=== PATIENT | male | born 1975 | race African-American/Black ===

== ENCOUNTER 2017-02-11 08:52 | Emergency (ER) | payer OTHER ==
[2017-02-11] MEDS ORDERED: SODIUM CHLORIDE 0.9% 1,000 ML IV STA (09:05)
[2017-02-11] MEDS ORDERED: ONDANSETRON 4 MG/2 ML VIAL IVP STA (09:05)
[2017-02-11] MEDS ORDERED: KETOROLAC 30 MG/ML 1 ML VIAL IVP STA (09:05)
[2017-02-11] MEDS ORDERED: MORPHINE SULFATE 2 MG/ML SYRINGE IVP ONE (09:13)
[2017-02-11] MEDS ORDERED: diphenhydrAMINE 50 MG/ML 1 ML VIAL IVP STA (09:13)
[2017-02-11 09:31] LABS: Appearance,Urine Clear (Clear); Bilirubin,Urine Negative (Negative); Glucose,Urine (UA) Negative (Negative); Ketones,Urine Negative (Negative); Leukocyte Esterase,Urine Negative (Negative); Nitrite,Urine Negative (Negative); PH, Urine 5.5 (5.0-8.0); Protein,Urine Negative (Negative); Specific Gravity,Urine 1.015 (1.001-1.035); UA Billing (MACRO vs. MICRO) CHEM; Urobilinogen,Urine <2.0 mg/dL (<2.0)
[2017-02-11 09:43] LABS: ALT 382 U/L (21-72); AST 257 U/L (17-59); Alkaline Phosphatase 111 U/L (38-126); Amylase 103 U/L (30-110); Anion Gap 8 mmol/L; Blood Urea Nitrogen 11 mg/dL (9-20); Carbon Dioxide 26 mmol/L (22-30); Chloride 106 mmol/L (98-107); Glucose 94 mg/dL (74-99); Non-African American GFR(MDRD) >60 (>60 ml/min/1.73 sqM); Potassium 4.2 mmol/L (3.5-5.1); Sodium 140 mmol/L (137-145); Total Bilirubin 0.3 mg/dL (0.2-1.3); Total Protein 6.6 g/dL (6.3-8.2)
[2017-02-11 09:48] LABS: Basophils % (A) 1 %; CH 24.5; Eosinophils # (A) 0.1 k/uL (0-0.7); Eosinophils % (A) 1 %; HCT 39.7 % (39.0-53.0); HDW 2.54; HGB 12.4 gm/dL (13.0-17.5); Luc # (Auto) 0.16; Luc % (Auto) 4; Lymphocytes # (A) 1.2 k/uL (1.0-4.8); Lymphocytes % (A) 33 %; MCH 24.1 pg (25.0-35.0); MCHC 31.3 g/dL (31.0-37.0); MCV 77.2 fL (80.0-100.0); Mean Platelet Volume 7.1; Monocytes # (A) 0.4 k/uL (0-1.0); Monocytes % (A) 10 %; Neutrophils # (A) 1.9 k/uL (1.3-7.7); Neutrophils % (A) 51 %; RBC 5.15 m/uL (4.30-5.90); RDW 15.7 % (11.5-15.5); WBC 3.8 k/uL (3.8-10.6); WBC (Perox) 3.99
[2017-02-11 09:51] LABS: INR 0.9 (<1.2); Partial Thromboplastin Time 23.1 sec (22.0-30.0); Prothrombin Time 9.6 sec (9.0-12.0)
--- NOTE | 2017-02-11 09:52 | XR ---
EXAMINATION TYPE: XR KUB DATE OF EXAM: 02/11/2017 COMPARISON: NONE HISTORY: Left-sided pain TECHNIQUE: One view abdominal series FINDINGS: The osseous structures are intact. The bowel gas pattern is nonspecific. Linear change left lung bas e. Hypertrophic change of the acetabulum noted. No suspicious calcifications. IMPRESSION: 1. Nonspecific abdomen. No obstruction. 2. Linear change left lung base most typical of atelectasis.
--- NOTE | 2017-02-11 10:06 | ED ---
General Adult HPI - General Chief complaint: Urogenital Stated complaint: back pain,cannot urinate Time Seen by Provider: 02/11/17 09:04 Source: patient, RN notes reviewed, old records reviewed Mode of arrival: ambulatory Limitations: no limitations - History of Present Illness Initial comments: 41-year-old male presents to the emergency department chief complaint of 3 days of left-sided flank pain. Patient reports it feels similar to when he had a kidney stone in the past. He states it feels like there is contractions and the pain seems to come and go in certain spots. Patient states the pain is in the back. Denies any specific pain radiating towards the abdomen. Patient states he's had no abnormal bowel movements. Feels nauseated but denies any specific vomiting. Patient states that he was taking Motrin with some relief of the pain. Patient states he does have a history of alcohol abuse. He did stop drinking 2 weeks ago. Patient denies any history of sick contacts.he reports that he has been urinating a dark color despite drinking lots of water. - Related Data Home Medications Medication Instructions Recorded Confirmed Venlafaxine HCl [Effexor] 75 mg PO HS 08/29/14 02/11/17 Ibuprofen [Motrin] 200 - 400 mg PO Q6HR PRN 02/11/17 02/11/17 Previous Rx's Medication Instructions Recorded HYDROcodone/APAP 5-325MG [[place] 1 tab PO Q6HR PRN #15 tab 02/11/17 5-325] Ketorolac [Toradol] 10 mg PO Q6HR #15 tab 02/11/17 Ondansetron Odt [Zofran Odt] 4 mg PO Q12HR PRN #12 tab 02/11/17 Tamsulosin [Flomax] 0.4 mg PO DAILY #7 cap 02/11/17 Allergies Allergy/AdvReac Type Severity Reaction Status Date / Time hydromorphone HCl Allergy Rash/Hives Verified 02/11/17 10:01 [From Dilaudid] shellfish derived [Shellfish] Allergy Anaphylaxis Verified 02/11/17 10:01 Review of Systems ROS Statement: Those systems with pertinent positive or pertinent negative responses have been documented in the HPI. ROS Other: All systems not noted in ROS Statement are negative. Past Medical History Past Medical History: Hypertension Additional Past Medical History / Comment(s): arthritis, kidney stone 2004 History of Any Multi-Drug Resistant Organisms: None Reported Past Surgical History: Orthopedic Surgery Additional Past Surgical History / Comment(s): lymph node removal, rotator cuff repair, biopsy right thigh Past Psychological History: Depression Smoking Status: Current some day smoker Past Alcohol Use History: None Reported Past Drug Use History: None Reported General Exam - General Exam Comments Initial Comments: this is a 41-year-old male. Patient does appear to be in some discomfort. Limitations: no limitations General appearance: alert, in no apparent distress Head exam: Present: atraumatic, normocephalic, normal inspection Eye exam: Present: normal appearance, PERRL, EOMI. Absent: scleral icterus, conjunctival injection, periorbital swelling ENT exam: Present: normal exam, mucous membranes moist Neck exam: Present: normal inspection. Absent: tenderness, meningismus, lymphadenopathy Respiratory exam: Present: normal lung sounds bilaterally. Absent: respiratory distress, wheezes, rales, rhonchi, stridor Cardiovascular Exam: Present: regular rate, normal rhythm, normal heart sounds. Absent: systolic murmur, diastolic murmur, rubs, gallop, clicks GI/Abdominal exam: Present: soft, tenderness (patient has some mild tenderness in the epigastric region and right upper quadrant.), normal bowel sounds. Absent: distended, guarding, rebound, rigid Extremities exam: Present: normal inspection, full ROM, normal capillary refill. Absent: tenderness, pedal edema, joint swelling, calf tenderness Back exam: Present: normal inspection, full ROM, CVA tenderness (L) Neurological exam: Present: alert, oriented X3, CN II-XII intact Psychiatric exam: Present: normal affect, normal mood Skin exam: Present: warm, dry, intact, normal color. Absent: rash Course Vital Signs 02/11/17 02/11/17 02/11/17 08:59 10:08 11:37 Temperature 98.9 F 97.0 F L Pulse Rate 89 71 65 Respiratory 18 18 14 Rate Blood Pressure 169/94 134/86 136/86 O2 Sat by Pulse 99 100 97 Oximetry Medical Decision Making - Medical Decision Making this is a 32-year-old male chief complaint of left flank pain, and difficulty urinating. Patient reports he thinks he has a kidney stone. Patient was given IV fluids, Toradol and 200s of morphine. Patient was reevaluated and reports that this pain is somewhat subsiding. Patient's urine shows no evidence of blood. Patient did have some elevated liver enzymes. Patient does relate that he has history of alcohol use but did stop drinking 2 weeks ago. Lipase is also mildly elevated. Patient will receive a gallbladder ultrasound. KUB was reviewed and negative for any acute process. RUQ us shows hepatomegaly, no cholelithiasis. Patient informed of results. Discused will treat patient with pain medication, and dose flomax as if patient does have renal stone. Discussed that he may have already passed it. Patient adivsed to follow up with PCP, return parameters discussed. - Lab Data Result diagrams: 02/11/17 09:15 02/11/17 09:15 Lab Results 02/11/17 02/11/17 02/11/17 Range/Units 09:15 09:15 09:15 WBC 3.8 (3.8-10.6) k/uL RBC 5.15 (4.30-5.90) m/uL Hgb 12.4 L (13.0-17.5) gm/dL Hct 39.7 (39.0-53.0) % MCV 77.2 L (80.0-100.0) fL MCH 24.1 L (25.0-35.0) pg MCHC 31.3 (31.0-37.0) g/dL RDW 15.7 H (11.5-15.5) % Plt Count 185 (150-450) k/uL Neutrophils % 51 % Lymphocytes % 33 % Monocytes % 10 % Eosinophils % 1 % Basophils % 1 % Neutrophils # 1.9 (1.3-7.7) k/uL Lymphocytes # 1.2 (1.0-4.8) k/uL Monocytes # 0.4 (0-1.0) k/uL Eosinophils # 0.1 (0-0.7) k/uL Basophils # 0.0 (0-0.2) k/uL PT (9.0-12.0) sec INR (<1.2) APTT (22.0-30.0) sec Sodium 140 (137-145) mmol/L Potassium 4.2 (3.5-5.1) mmol/L Chloride 106 (98-107) mmol/L Carbon Dioxide 26 (22-30) mmol/L Anion Gap 8 mmol/L BUN 11 (9-20) mg/dL Creatinine 1.04 (0.66-1.25) mg/dL Est GFR (MDRD) Af Amer >60 (>60 ml/min/1.73 sqM) Est GFR (MDRD) Non-Af >60 (>60 ml/min/1.73 sqM) Glucose 94 (74-99) mg/dL Calcium 9.0 (8.4-10.2) mg/dL Total Bilirubin 0.3 (0.2-1.3) mg/dL AST 257 H (17-59) U/L ALT 382 H (21-72) U/L Alkaline Phosphatase 111 (38-126) U/L Total Protein 6.6 (6.3-8.2) g/dL Albumin 3.9 (3.5-5.0) g/dL Amylase 103 (30-110) U/L Lipase 330 H (23-300) U/L Urine Color Yellow Urine Appearance Clear (Clear) Urine pH 5.5 (5.0-8.0) Ur Specific [place] 1.015 (1.001-1.035) Urine Protein Negative (Negative) Urine Glucose (UA) Negative (Negative) Urine Ketones Negative (Negative) Urine Blood Negative (Negative) Urine Nitrite Negative (Negative) Urine Bilirubin Negative (Negative) Urine Urobilinogen <2.0 (<2.0) mg/dL Ur Leukocyte Esterase Negative (Negative) 02/11/17 Range/Units 09:15 WBC (3.8-10.6) k/uL RBC (4.30-5.90) m/uL Hgb (13.0-17.5) gm/dL Hct (39.0-53.0) % MCV (80.0-100.0) fL MCH (25.0-35.0) pg MCHC (31.0-37.0) g/dL RDW (11.5-15.5) % Plt Count (150-450) k/uL Neutrophils % % Lymphocytes % % Monocytes % % Eosinophils % % Basophils % % Neutrophils # (1.3-7.7) k/uL Lymphocytes # (1.0-4.8) k/uL Monocytes # (0-1.0) k/uL Eosinophils # (0-0.7) k/uL Basophils # (0-0.2) k/uL PT 9.6 (9.0-12.0) sec INR 0.9 (<1.2) APTT 23.1 (22.0-30.0) sec Sodium (137-145) mmol/L Potassium (3.5-5.1) mmol/L Chloride (98-107) mmol/L Carbon Dioxide (22-30) mmol/L Anion Gap mmol/L BUN (9-20) mg/dL Creatinine (0.66-1.25) mg/dL Est GFR (MDRD) Af Amer (>60 ml/min/1.73 sqM) Est GFR (MDRD) Non-Af (>60 ml/min/1.73 sqM) Glucose (74-99) mg/dL Calcium (8.4-10.2) mg/dL Total Bilirubin (0.2-1.3) mg/dL AST (17-59) U/L ALT (21-72) U/L Alkaline Phosphatase (38-126) U/L Total Protein (6.3-8.2) g/dL Albumin (3.5-5.0) g/dL Amylase (30-110) U/L Lipase (23-300) U/L Urine Color Urine Appearance (Clear) Urine pH (5.0-8.0) Ur Specific [place] (1.001-1.035) Urine Protein (Negative) Urine Glucose (UA) (Negative) Urine Ketones (Negative) Urine Blood (Negative) Urine Nitrite (Negative) Urine Bilirubin (Negative) Urine Urobilinogen (<2.0) mg/dL Ur Leukocyte Esterase (Negative) - Radiology Data Radiology results: report reviewed ultrasound of the gallbladder showsMild hepatomegaly. No gallstones. KUB negative for any acute process. Disposition Clinical Impression: Left flank pain, Elevated liver enzymes Disposition: HOME SELF-CARE Condition: Good Instructions: Flank Pain (ED) Additional Instructions: patient advised to take the medication as prescribed. Follow-up with primary care provider. Return to the emergency department if any alarming signs or symptoms occur. Recommended repeating her lab work and one month if he discontinue drinking today monitor her liver enzymes. Prescriptions: HYDROcodone/APAP 5-325MG [[place] 5-325] 1 tab PO Q6HR PRN #15 tab PRN Reason: Pain Ketorolac [Toradol] 10 mg PO Q6HR #15 tab Ondansetron Odt [Zofran Odt] 4 mg PO Q12HR PRN #12 tab PRN Reason: Nausea Tamsulosin [Flomax] 0.4 mg PO DAILY #7 cap Referrals: None,Stated [Primary Care Provider] - 1-2 days Time of Disposition: 11:26
--- NOTE | 2017-02-11 10:39 | US ---
EXAMINATION TYPE: US gallbladder DATE OF EXAM: 02/11/2017 COMPARISON: NONE CLINICAL HISTORY: Pain. Back spasms EXAM MEASUREMENTS: Liver Length: 18.3 cm Gallbladder Wall: 0.2 cm CBD: 0.3 cm Right Kidney: 10.6 x 5.2 x 5.5 cm Pancreas: Limited by bowel gas Liver: enlarged Gallbladder: no evidence of stones Evidence for sonographic Rodrigez's sign: No CBD: appears wnl Right Kidney: no evidence of hydronephrosis or mass IMPRESSION: 1. Mild hepatomegaly. 2. No gallstones
[2017-02-11 11:38] VITALS: BP 136/86; PULSE 65; RESP 14; TEMP 97
== END 2017-02-11 11:38 | disposition home or self-care (01) ==
LOC: EC 08:52
DX: R10.9 Unspecified abdominal pain (principal); R74.8 Abnormal levels of other serum enzymes; M54.9 Dorsalgia, unspecified; R39.198 Other difficulties with micturition; R11.0 Nausea; F32.9 Major depressive disorder, single episode, unspecified; F17.200 Nicotine dependence, unspecified, uncomplicated; Z79.899 Other long term (current) drug therapy; Z88.5 Allergy status to narcotic agent; Z91.013 Allergy to seafood
CPT/HCPCS: 99284; 96374; 96375 ×3; 96361; 36415; 80053; 82150; 83690; 85025; 85610; 85730; 81003; 74000; 76705; J1200; J2405; J1885; J2270

== ENCOUNTER 2017-03-13 12:07 | Emergency (ER) | payer OTHER ==
[2017-03-13 12:16] VITALS: BP 138/84; PULSE 69; RESP 20; TEMP 98.2
--- NOTE | 2017-03-13 12:29 | ED ---
Lower Extremity Injury HPI - General Chief Complaint: Extremity Injury, Lower Stated Complaint: Hip pain Time Seen by Provider: 03/13/17 12:17 Source: patient, RN notes reviewed, old records reviewed Mode of arrival: wheelchair Limitations: no limitations - History of Present Illness Initial Comments: this is a 41-year-old male Department chief complaint of left hip pain. Patient reports that last week he was sitting on the ground and went to see an up and felt a pop. He reports that he's been having intermittent pain since then. Patient reports he went for a jog yesterday and he had the popping sensation again and the pain has been persistent. Patient reports it's painful to bear weight over his leg. This external and internal rotation of the hip. Denies any pain. Patient denies any peripheral paresthesias or back pain. Patient denies any recent fever, chills, shortness of breath, chest pain, back pain, abdominal pain, nausea vomiting, numbness or tingling, dysuria or hematuria, constipation or diarrhea, headaches or visual changes, or any other current symptoms - Related Data Home Medications Medication Instructions Recorded Confirmed Venlafaxine HCl [Effexor] 75 mg PO HS 08/29/14 03/13/17 Previous Rx's Medication Instructions Recorded traMADol HCl [Ultram] 50 mg PO Q6H PRN #15 tab 03/13/17 Allergies Allergy/AdvReac Type Severity Reaction Status Date / Time hydromorphone HCl Allergy Rash/Hives Verified 03/13/17 12:16 [From Dilaudid] shellfish derived [Shellfish] Allergy Anaphylaxis Verified 03/13/17 12:16 Review of Systems ROS Statement: Those systems with pertinent positive or pertinent negative responses have been documented in the HPI. ROS Other: All systems not noted in ROS Statement are negative. Past Medical History Past Medical History: Hypertension Additional Past Medical History / Comment(s): arthritis, kidney stone 2004 History of Any Multi-Drug Resistant Organisms: None Reported Past Surgical History: Orthopedic Surgery Additional Past Surgical History / Comment(s): lymph node removal, rotator cuff repair, biopsy right thigh Past Psychological History: Depression Smoking Status: Former smoker Past Alcohol Use History: None Reported Past Drug Use History: None Reported General Exam Limitations: no limitations General appearance: alert, in no apparent distress Head exam: Present: atraumatic, normocephalic, normal inspection Eye exam: Present: normal appearance, PERRL, EOMI. Absent: scleral icterus, conjunctival injection, periorbital swelling ENT exam: Present: normal exam, mucous membranes moist Neck exam: Present: normal inspection. Absent: tenderness, meningismus, lymphadenopathy Respiratory exam: Present: normal lung sounds bilaterally. Absent: respiratory distress, wheezes, rales, rhonchi, stridor Cardiovascular Exam: Present: regular rate, normal rhythm, normal heart sounds. Absent: systolic murmur, diastolic murmur, rubs, gallop, clicks GI/Abdominal exam: Present: soft, normal bowel sounds. Absent: distended, tenderness, guarding, rebound, rigid Extremities exam: Present: normal inspection, full ROM, normal capillary refill. Absent: tenderness, pedal edema, joint swelling, calf tenderness Left Hip exam: Present: normal inspection, tenderness (patient reports some tenderness over the lateral aspect of the hip.). Absent: full ROM (patient has pain with flexion of the hip, internal and external rotation.), swelling, abrasion, laceration, ecchymosis, deformity Upper Leg exam: Present: normal inspection, full ROM Knee exam: Present: normal inspection, tenderness Lower Leg exam: Present: normal inspection, full ROM Ankle exam: Present: normal inspection Back exam: Present: normal inspection Neurological exam: Present: alert, oriented X3, CN II-XII intact Psychiatric exam: Present: normal affect, normal mood Skin exam: Present: warm, dry, intact, normal color. Absent: rash Course Vital Signs 03/13/17 12:14 Temperature 98.2 F Pulse Rate 69 Respiratory 20 Rate Blood Pressure 138/84 O2 Sat by Pulse 98 Oximetry Medical Decision Making - Medical Decision Making 41-year-old male presents emergency department with left hip symptoms popping sensation and pain. Patient x-rays reviewed and show no evidence of any acute process. Discussed that he could have a possible acetabulum tear. He is able to ambulate. He just has pain with internal and external rotation of the hip. Patient will be discharged at this time with short course of pain medication referral for orthopedics. Discussed returning to the emergency department if any alarming signs or symptoms occur. Patient agrees to treatment plan will comply. Return parameters were discussed. - Radiology Data Radiology results: report reviewed No acute fracture dislocation evident within the pelvis. Sacroiliac joints appear symmetric and unremarkable. Right-sided pelvic phlebolith seen. 2 views of the left hip showed no acute fracture dislocation. No chronic lesion noted left femur. Overlying soft tissue appears unremarkable. Disposition Clinical Impression: Left hip crepitus, Left hip impingement syndrome Disposition: HOME SELF-CARE Condition: Good Instructions: Hip Pain (ED), Arthralgia (ED) Additional Instructions: Advised to follow-up with orthopedic physician. Recommended putting ice and heat over the area. Patient should return to the emergency department if any alarming signs or symptoms occur. Prescriptions: traMADol HCl [Ultram] 50 mg PO Q6H PRN #15 tab PRN Reason: Pain Referrals: Nonstaff,Physician [Primary Care Provider] - 1-2 days Boubacar Alaniz DO [Doctor of Osteopathic Medicine] - 1-2 days Time of Disposition: 13:11
--- NOTE | 2017-03-13 13:07 | XR ---
EXAMINATION TYPE: XR Hip LT and AP Pelvis DATE OF EXAM: 03/13/2017 COMPARISON: NONE HISTORY: Pain TECHNIQUE: A single AP view of the pelvis is obtained. Two views of the left hip are obtained. FINDINGS: There is no acute fracture/dislocation evident in the pelvis. The sacroiliac joints appea r symmetric and unremarkable. Right-sided pelvic phlebolith is seen. Two views of left hip show no acute fracture or dislocation. No focal lytic or sclerotic lesion seen in the proximal left femur. The overlying soft tissue is unremarkable. IMPRESSION: No significant finding is seen to account for patient's symptoms.
== END 2017-03-13 13:22 | disposition home or self-care (01) ==
LOC: EC 12:07
DX: M24.852 Other specific joint derangements of left hip, not elsewhere classified (principal); M25.852 Other specified joint disorders, left hip; F32.9 Major depressive disorder, single episode, unspecified; Z88.5 Allergy status to narcotic agent; Z91.013 Allergy to seafood; Z79.899 Other long term (current) drug therapy; Z87.891 Personal history of nicotine dependence; X50.9XXA Other and unspecified overexertion or strenuous movements or postures, initial encounter
CPT/HCPCS: 73502; 99284

== ENCOUNTER 2018-07-30 20:53 | Emergency (ER) | payer OTHER ==
[2018-07-30 20:59] VITALS: BP 136/93; PULSE 105; RESP 18; TEMP 100
--- NOTE | 2018-07-30 22:34 | ED ---
General Adult HPI - General Source: patient, RN notes reviewed Mode of arrival: ambulatory Limitations: no limitations <Arron Fitzpatrick P - Last Filed: 07/30/18 22:44> <Yoko Brown P - Last Filed: 07/31/18 02:48> - General Chief complaint: Wound/Laceration Stated complaint: Lip injury Time Seen by Provider: 07/30/18 21:05 - History of Present Illness Initial comments: 43-year-old male presents to the emergency department for a chief of laceration to the right upper lip 1 hour. This occurred while he was playing basketball. He states another child hit his head against his lip. No pain in the teeth. No lacerations of the tongue. Patient is up-to-date on tetanus. No head injury or loss of consciousness. No other injuries. Patient has no other complaints at this time including shortness of breath, chest pain, abdominal pain, nausea or vomiting, headache, or visual changes. (Arron Fitzpatrick) - Related Data Home Medications Medication Instructions Recorded Confirmed Venlafaxine HCl [Effexor] 75 mg PO HS 08/29/14 03/13/17 Previous Rx's Medication Instructions Recorded traMADol HCl [Ultram] 50 mg PO Q6H PRN #15 tab 03/13/17 Allergies Allergy/AdvReac Type Severity Reaction Status Date / Time hydromorphone HCl Allergy Rash/Hives Verified 07/30/18 20:59 [From Dilaudid] shellfish derived [Shellfish] Allergy Anaphylaxis Verified 07/30/18 20:59 Review of Systems ROS Other: All systems not noted in ROS Statement are negative. <Arron Fitzpatrick P - Last Filed: 07/30/18 22:44> ROS Other: All systems not noted in ROS Statement are negative. <Yoko Brown P - Last Filed: 07/31/18 02:48> ROS Statement: Those systems with pertinent positive or pertinent negative responses have been documented in the HPI. Past Medical History Past Medical History: Hypertension Additional Past Medical History / Comment(s): arthritis, kidney stone 2003 History of Any Multi-Drug Resistant Organisms: None Reported Past Surgical History: Orthopedic Surgery Additional Past Surgical History / Comment(s): lymph node removal, rotator cuff repair, biopsy right thigh Past Psychological History: Depression Smoking Status: Former smoker Past Alcohol Use History: None Reported Past Drug Use History: None Reported <Arron Fitzpatrick P - Last Filed: 07/30/18 22:44> General Exam Limitations: no limitations General appearance: alert, in no apparent distress Head exam: Present: atraumatic, normocephalic, normal inspection Eye exam: Present: normal appearance, PERRL, EOMI. Absent: scleral icterus, conjunctival injection, periorbital swelling ENT exam: Present: normal exam, normal oropharynx (2 cm laceration on right upper lip, did not go through lip), mucous membranes moist, TM's normal bilaterally, normal external ear exam, other (teeth intact, no lacerations to lip) Neck exam: Present: normal inspection, full ROM. Absent: tenderness, meningismus, lymphadenopathy Respiratory exam: Present: normal lung sounds bilaterally. Absent: respiratory distress, wheezes, rales, rhonchi, stridor Cardiovascular Exam: Present: regular rate, normal rhythm, normal heart sounds. Absent: systolic murmur, diastolic murmur, rubs, gallop, clicks Neurological exam: Present: alert, oriented X3, CN II-XII intact Psychiatric exam: Present: normal affect, normal mood <Arron Fitzpatrick P - Last Filed: 07/30/18 22:44> Vital Signs 07/30/18 20:55 Temperature 100 F H Pulse Rate 105 H Respiratory 18 Rate Blood Pressure 136/93 O2 Sat by Pulse 98 Oximetry Medical Decision Making <Arron Fitzpatrick P - Last Filed: 07/30/18 22:44> <Yoko Brown P - Last Filed: 07/31/18 02:48> - Medical Decision Making 43-year-old male presents to the emergency department for a chief complaint of laceration to the right upper lip. This occurred while he was playing basketball and another person hit her head against his lip. No injury to the teeth. No loose teeth noted. No lacerations of the tongue. Patient does have a 2 cm gaping laceration to the right upper lip on the interior aspect. This was cleaned thoroughly with saline pressure irrigation and wound was closed using 3 absorbable sutures. Bleeding has ceased at this time. Patient is up-to -date on tetanus. I did discuss watching for signs of infection such as drainage or fever and returning if these occur. (Arron Fitzpatrick) I was available for consultation in the emergency department. The history and physical exam were done by the midlevel provider. I was consulted for this patient's care. I reviewed the case with the midlevel provider and based on their presentation of the patient, I agree with the assessment, medical decision making and plan of care as documented. (Yoko Brown) Disposition Is patient prescribed a controlled substance at d/c from ED?: No Time of Disposition: 22:27 <Arron Fitzpatrick P - Last Filed: 07/30/18 22:44> <Yoko Brown P - Last Filed: 07/31/18 02:48> Clinical Impression: Laceration Disposition: HOME SELF-CARE Condition: Good Instructions (If sedation given, give patient instructions): Laceration (ED), Care For Your Absorbable Stitches (ED) Additional Instructions: Take Motrin and Tylenol for pain and ice the area. Please keep the area clean. Sutures will absorb on their own. If you have any signs of infection such as drainage or fever return to the emergency department. If you have any other worsening symptoms return to the emergency department. Referrals: Nonstaff,Physician [Primary Care Provider] - 1-2 days
[2018-07-30] MEDS ORDERED: ACET/COD 300 MG/30 MG STARTER PACK 6 TAB BTL PO STA (22:38)
== END 2018-07-30 22:47 | disposition home or self-care (01) ==
LOC: EC 20:53
DX: S01.511A Laceration without foreign body of lip, initial encounter (principal); F32.9 Major depressive disorder, single episode, unspecified; Z87.891 Personal history of nicotine dependence; Z79.899 Other long term (current) drug therapy; Z88.5 Allergy status to narcotic agent; Z91.013 Allergy to seafood; W50.0XXA Accidental hit or strike by another person, initial encounter; Y93.67 Activity, basketball; Y92.89 Other specified places as the place of occurrence of the external cause
CPT/HCPCS: 12011; 99282

== ENCOUNTER 2018-10-18 09:34 | Emergency (ER) | payer OTHER ==
[2018-10-18 09:43] VITALS: RESP 18
[2018-10-18] MEDS ORDERED: SODIUM CHLORIDE 0.9% 2,000 ML IV STA (09:43)
--- NOTE | 2018-10-18 09:58 | ED ---
Abdominal Pain HPI - General Chief Complaint: Abdominal Pain Stated Complaint: abdominal pain, testicle pain Time Seen by Provider: 10/18/18 09:43 Source: patient, RN notes reviewed Mode of arrival: ambulatory Limitations: no limitations - History of Present Illness Initial Comments: This a 43-year-old male presents emergency Department with chief complaint of abdominal pain and scrotal pain. Patient states she's had some pain in his scrotum for last month or so. Patient states he developed abdominal pain last night. He states in the right side consistent with his scrotal pain. Patient denies any dysuria or hematuria. She's had no prior abdominal surgeries no prior scrotal surgeries. Patient states that he did recently stop drinking presented no nausea vomiting shaking diarrhea constipation. Patient states she is otherwise healthy has not been taking anything for the pain no fevers or chills. Patient states that nothing really makes the pain feel better or worse at this time he states some movements last night did worsen or also improve the pain. That is not the case at this time. - Related Data Home Medications Medication Instructions Recorded Confirmed Venlafaxine HCl [Effexor] 75 mg PO HS 08/29/14 10/18/18 Ibuprofen [Motrin Ib] 400 mg PO Q6H PRN 10/18/18 10/18/18 Previous Rx's Medication Instructions Recorded Sulfamethox-Tmp 800-160Mg [Bactrim 1 each PO Q12HR #14 tab 10/18/18 Ds] Allergies Allergy/AdvReac Type Severity Reaction Status Date / Time hydromorphone HCl Allergy Rash/Hives Verified 10/18/18 09:46 [From Dilaudid] shellfish derived [Shellfish] Allergy Anaphylaxis Verified 10/18/18 09:46 Review of Systems ROS Statement: Those systems with pertinent positive or pertinent negative responses have been documented in the HPI. ROS Other: All systems not noted in ROS Statement are negative. Past Medical History Past Medical History: Hypertension Additional Past Medical History / Comment(s): arthritis, kidney stone 2004 History of Any Multi-Drug Resistant Organisms: None Reported Past Surgical History: Orthopedic Surgery Additional Past Surgical History / Comment(s): lymph node removal, rotator cuff repair, biopsy right thigh Past Psychological History: Depression Smoking Status: Current every day smoker Past Alcohol Use History: Abuse, Daily Past Drug Use History: Marijuana General Exam Limitations: no limitations General appearance: alert, in no apparent distress Head exam: Present: atraumatic, normocephalic, normal inspection ENT exam: Present: normal exam, mucous membranes moist Neck exam: Present: normal inspection. Absent: tenderness, meningismus, lymphadenopathy Respiratory exam: Present: normal lung sounds bilaterally. Absent: respiratory distress, wheezes, rales, rhonchi, stridor Cardiovascular Exam: Present: regular rate, normal rhythm, normal heart sounds. Absent: systolic murmur, diastolic murmur, rubs, gallop, clicks GI/Abdominal exam: Present: soft, tenderness (Mild right-sided), normal bowel sounds. Absent: distended, guarding, rebound, rigid exam: Present: testicular tenderness (Right). Absent: urethral discharge Back exam: Absent: CVA tenderness (R), CVA tenderness (L) Neurological exam: Present: alert, oriented X3, CN II-XII intact Skin exam: Present: warm, dry, intact, normal color. Absent: rash Course Vital Signs 10/18/18 09:35 Temperature 98.3 F Pulse Rate 95 Respiratory 18 Rate Blood Pressure 160/106 O2 Sat by Pulse 100 Oximetry Medical Decision Making - Medical Decision Making 43-year-old male presents emergency Department for scrotal pain abdominal pain. Patient has evidence of epididymitis and further cyst noted on the testicle. Patient will follow-up with urology for recheck repeat ultrasound. Patient given Rocephin and azithromycin and discharged on Bactrim. Return parameters were discussed. - Lab Data Result diagrams: 10/18/18 10:14 10/18/18 10:14 Lab Results 10/18/18 10/18/18 10/18/18 Range/Units 10:14 10:14 10:14 WBC 2.8 L (3.8-10.6) k/uL RBC 5.64 (4.30-5.90) m/uL Hgb 13.0 (13.0-17.5) gm/dL Hct 42.4 (39.0-53.0) % MCV 75.2 L (80.0-100.0) fL MCH 23.1 L (25.0-35.0) pg MCHC 30.7 L (31.0-37.0) g/dL RDW 14.9 (11.5-15.5) % Plt Count 213 (150-450) k/uL Neutrophils % (Manual) 51 % Lymphocytes % (Manual) 41 % Monocytes % (Manual) 8 % Neutrophils # (Manual) 1.43 (1.3-7.7) k/uL Lymphocytes # (Manual) 1.15 (1.0-4.8) k/uL Monocytes # (Manual) 0.22 (0-1.0) k/uL Nucleated RBCs 0 (0-0) /100 WBC Reactive Lymphocytes Present Hypochromasia Slight Poikilocytosis (manual Present Anisocytosis (manual) Present Microcytosis Slight PT 9.8 (9.0-12.0) sec INR 0.9 (<1.2) APTT 23.3 (22.0-30.0) sec Sodium 141 (137-145) mmol/L Potassium 3.9 (3.5-5.1) mmol/L Chloride 106 (98-107) mmol/L Carbon Dioxide 27 (22-30) mmol/L Anion Gap 8 mmol/L BUN 19 (9-20) mg/dL Creatinine 0.99 (0.66-1.25) mg/dL Est GFR (CKD-EPI)AfAm >90 (>60 ml/min/1.73 sqM) Est GFR (CKD-EPI)NonAf >90 (>60 ml/min/1.73 sqM) Glucose 96 (74-99) mg/dL Calcium 9.8 (8.4-10.2) mg/dL Magnesium 1.8 (1.6-2.3) mg/dL Total Bilirubin 0.8 (0.2-1.3) mg/dL AST 119 H (17-59) U/L ALT 139 H (21-72) U/L Alkaline Phosphatase 81 (38-126) U/L Total Protein 7.6 (6.3-8.2) g/dL Albumin 4.5 (3.5-5.0) g/dL Amylase 123 H (30-110) U/L Lipase 200 (23-300) U/L Urine Color Urine Appearance (Clear) Urine pH (5.0-8.0) Ur Specific Roland (1.001-1.035) Urine Protein (Negative) Urine Glucose (UA) (Negative) Urine Ketones (Negative) Urine Blood (Negative) Urine Nitrite (Negative) Urine Bilirubin (Negative) Urine Urobilinogen (<2.0) mg/dL Ur Leukocyte Esterase (Negative) Serum Alcohol <10 mg/dL 10/18/18 Range/Units 10:14 WBC (3.8-10.6) k/uL RBC (4.30-5.90) m/uL Hgb (13.0-17.5) gm/dL Hct (39.0-53.0) % MCV (80.0-100.0) fL MCH (25.0-35.0) pg MCHC (31.0-37.0) g/dL RDW (11.5-15.5) % Plt Count (150-450) k/uL Neutrophils % (Manual) % Lymphocytes % (Manual) % Monocytes % (Manual) % Neutrophils # (Manual) (1.3-7.7) k/uL Lymphocytes # (Manual) (1.0-4.8) k/uL Monocytes # (Manual) (0-1.0) k/uL Nucleated RBCs (0-0) /100 WBC Reactive Lymphocytes Hypochromasia Poikilocytosis (manual Anisocytosis (manual) Microcytosis PT (9.0-12.0) sec INR (<1.2) APTT (22.0-30.0) sec Sodium (137-145) mmol/L Potassium (3.5-5.1) mmol/L Chloride (98-107) mmol/L Carbon Dioxide (22-30) mmol/L Anion Gap mmol/L BUN (9-20) mg/dL Creatinine (0.66-1.25) mg/dL Est GFR (CKD-EPI)AfAm (>60 ml/min/1.73 sqM) Est GFR (CKD-EPI)NonAf (>60 ml/min/1.73 sqM) Glucose (74-99) mg/dL Calcium (8.4-10.2) mg/dL Magnesium (1.6-2.3) mg/dL Total Bilirubin (0.2-1.3) mg/dL AST (17-59) U/L ALT (21-72) U/L Alkaline Phosphatase (38-126) U/L Total Protein (6.3-8.2) g/dL Albumin (3.5-5.0) g/dL Amylase (30-110) U/L Lipase (23-300) U/L Urine Color Yellow Urine Appearance Clear (Clear) Urine pH 6.5 (5.0-8.0) Ur Specific Roland 1.029 (1.001-1.035) Urine Protein Trace H (Negative) Urine Glucose (UA) Negative (Negative) Urine Ketones Trace H (Negative) Urine Blood Negative (Negative) Urine Nitrite Negative (Negative) Urine Bilirubin Negative (Negative) Urine Urobilinogen 2.0 (<2.0) mg/dL Ur Leukocyte Esterase Negative (Negative) Serum Alcohol mg/dL Disposition Clinical Impression: Epididymitis, Abdominal pain Disposition: HOME SELF-CARE Condition: Stable Instructions (If sedation given, give patient instructions): Epididymitis (ED) Additional Instructions: Please return to the Emergency Department if symptoms worsen or any other concerns. Prescriptions: Sulfamethox-Tmp 800-160Mg [Bactrim Ds] 1 each PO Q12HR #14 tab Is patient prescribed a controlled substance at d/c from ED?: No Referrals: None,Stated [Primary Care Provider] - 1-2 days Nicholas Mcelroy MD [STAFF PHYSICIAN] - 1-2 days Time of Disposition: 12:11
[2018-10-18 10:33] LABS: ALT 139 U/L (21-72); AST 119 U/L (17-59); Albumin 4.5 g/dL (3.5-5.0); Alcohol <10 mg/dL; Alkaline Phosphatase 81 U/L (38-126); Amylase 123 U/L (30-110); Anion Gap 8 mmol/L; Blood Urea Nitrogen 19 mg/dL (9-20); Calcium 9.8 mg/dL (8.4-10.2); Carbon Dioxide 27 mmol/L (22-30); Chloride 106 mmol/L (98-107); Glucose 96 mg/dL (74-99); Lipase 200 U/L (23-300); Magnesium 1.8 mg/dL (1.6-2.3); Potassium 3.9 mmol/L (3.5-5.1); Sodium 141 mmol/L (137-145); Total Bilirubin 0.8 mg/dL (0.2-1.3); Total Protein 7.6 g/dL (6.3-8.2)
[2018-10-18 10:37] LABS: INR 0.9 (<1.2); Partial Thromboplastin Time 23.3 sec (22.0-30.0); Prothrombin Time 9.8 sec (9.0-12.0)
[2018-10-18 10:58] LABS: HCT 42.4 % (39.0-53.0); Hypochromasia Slight; MCH 23.1 pg (25.0-35.0); MCHC 30.7 g/dL (31.0-37.0); MCV 75.2 fL (80.0-100.0); Microcytosis Slight; Platelet Count 213 k/uL (150-450); RBC 5.64 m/uL (4.30-5.90); RDW 14.9 % (11.5-15.5); WBC 2.8 k/uL (3.8-10.6)
--- NOTE | 2018-10-18 11:13 | US ---
EXAMINATION TYPE: US scrotum with doppler. Grayscale and color Doppler Duplex imaging performed of t luz maria scrotum. DATE OF EXAM: 10/18/2018 COMPARISON: NONE CLINICAL HISTORY: Pain. Right testicular pain x 1 to 2 months, gotten worse recently EXAM MEASUREMENTS: TESTICLES: Right Testicle: 5.3 x 2.9 x 2.9 cm Left Testicle: 5.4 x 2.8 x 3.7 cm EPIDIDYMIS HEAD: Right Epididymis: 0.8 x 1.3 x 1.4 cm Left Epididymis: 1.0 x 1.2 x 2.3 cm Doppler performed to assess for testicular vascularity; bilateral color flow and waveforms are seen. Presence of hydroceles: right 4.8cm, left 3.0cm Presence of varicoceles: no Right epididymis: 0.5cm cyst Right testicle: 2 echogenic foci measuring 0.4cm and 0.2cm seen medially IMPRESSION: There is color flow, vascular waveforms are present bilaterally to the testes. Right epid idymal cyst. Bilateral hydroceles. Indeterminate echogenic foci seen within the right testicle show n onaggressive appearance, follow-up could be performed to assess for stability.
[2018-10-18 11:57] LABS: Appearance,Urine Clear (Clear); Bilirubin,Urine Negative (Negative); Blood,Urine Negative (Negative); Color,Urine Yellow; Glucose,Urine (UA) Negative (Negative); Ketones,Urine Trace (Negative); Leukocyte Esterase,Urine Negative (Negative); Lymphocytes # (M) 1.15 k/uL (1.0-4.8); Monocytes # (M) 0.22 k/uL (0-1.0); Neutrophils # (M) 1.43 k/uL (1.3-7.7); Neutrophils % (M) 51 %; Nitrite,Urine Negative (Negative); Nucleated Red Blood Cells 0 /100 WBC (0-0); PH, Urine 6.5 (5.0-8.0); Protein,Urine Trace (Negative); Specific Gravity,Urine 1.029 (1.001-1.035); Total Cells Counted 100
[2018-10-18 11:59] LABS: Anisocytosis (M) Present; Poikilocytosis (M) Present; Reactive Lymphocytes Present
[2018-10-18] MEDS ORDERED: cefTRIAXone IN SWFI 1,000 MG/10 ML SYRINGE IVP STA (12:08)
[2018-10-18] MEDS ORDERED: AZITHROMYCIN 250 MG TAB PO STA (12:08)
[2018-10-18 12:26] VITALS: BP 147/106; PULSE 66; TEMP 98.2
== END 2018-10-18 12:35 | disposition home or self-care (01) ==
LOC: EC 09:34
DX: N45.1 Epididymitis (principal); N43.3 Hydrocele, unspecified; N50.3 Cyst of epididymis; F32.9 Major depressive disorder, single episode, unspecified; F17.200 Nicotine dependence, unspecified, uncomplicated; Z79.899 Other long term (current) drug therapy; Z88.5 Allergy status to narcotic agent; Z91.013 Allergy to seafood
CPT/HCPCS: 36415; 80053; 82150; 83690; 83735; 85025; 85610; 85730; 81003; 80320; 93975; 76870; 99284; 96374; 96361 ×2; J0696

== ENCOUNTER → 2020-03-17 | Outpatient (CLI) | payer OTHER ==
--- NOTE | 2020-03-17 10:29 | ECHOF ---
Referral Reason:murmur MEASUREMENTS -------- HEIGHT: 182.9 cm WEIGHT: 96.2 kg BP: RVIDd: 3.8 cm (< 3.3) IVSd: 1.7 cm (0.6 - 1.1) LVIDd: 3.7 cm (3.9 - 5.3) LVPWd: 1.5 cm (0.6 - 1.1) IVSs: 1.9 cm LVIDs: 2.9 cm LVPWs: 2.0 cm LAESV Index (A-L): 39.30 ml/m Ao Diam: 3.7 cm (2.0 - 3.7) AV Cusp: 2.0 cm (1.5 - 2.6) MV EXCURSION: 17.027 mm (> 18.000) MV EF SLOPE: 102 mm/s (70 - 150) EPSS: 0.6 cm MV E River: 0.54 m/s MV DecT: 189 ms MV A River: 0.61 m/s MV E/A Ratio: 0.89 RAP: 5.00 mmHg RVSP: 34.14 mmHg FINDINGS -------- This was a technically adequate study. The left ventricular size is normal. There is severe concentric left ventricular hypertrophy. Ove rall left ventricular systolic function is low-normal with, an EF between 50 - 55 %. The diastolic filling pattern is normal for the age of the patient 6.34. The right ventricle is mild to moderately enlarged. LA is moderately dilated 34-39 ml/m2 The right atrium is mildly enlarged. Interatrial and interventricular septum intact. The aortic valve is trileaflet and appears structurally normal. There is no evidence of aortic regu rgitation. There is no evidence of aortic stenosis. Moderate mitral regurgitation is present. Mild tricuspid regurgitation present. There is borderline pulmonary artery hypertension. The righ t ventricular systolic pressure, as measured by Doppler, is 34.14mmHg. There is no pulmonic regurgitation present. The aortic root size is normal. Normal inferior vena cava with normal inspiratory collapse consistent with estimated right atrial pre ssure of 5 mmHg. There is no pericardial effusion. CONCLUSIONS -------- 1. The left ventricular size is normal. 2. There is severe concentric left ventricular hypertrophy. 3. Overall left ventricular systolic function is low-normal with, an EF between 50 - 55 %. 4. The right ventricle is mild to moderately enlarged. 5. LA is moderately dilated 34-39 ml/m2 6. The right atrium is mildly enlarged. 7. Moderate mitral regurgitation is present. 8. Mild tricuspid regurgitation present. 9. There is borderline pulmonary artery hypertension. 10. The right ventricular systolic pressure, as measured by Doppler, is 34.14mmHg. MARKET RESEARCH INTERVIEWER: Magda Holly RDCS
== END | disposition home or self-care (01) ==
LOC: RADECHMAIN 08:26
DX: I08.1 Rheumatic disorders of both mitral and tricuspid valves (principal); I27.21 Secondary pulmonary arterial hypertension
CPT/HCPCS: 93306

== ENCOUNTER 2020-03-27 07:05 | Emergency (ER) | payer OTHER ==
[2020-03-27 07:16] VITALS: BP 138/97; PULSE 80; RESP 18; TEMP 98
[2020-03-27] MEDS ORDERED: FLUORESCEIN STRIPS 1 MG STRIP RIGHT EYE STA (07:30)
--- NOTE | 2020-03-27 07:48 | ED ---
General Adult HPI - General Chief complaint: Skin/Abscess/Foreign Body Stated complaint: poss spider bite Time Seen by Provider: 03/27/20 07:17 Source: patient, RN notes reviewed Mode of arrival: ambulatory Limitations: no limitations - History of Present Illness Initial comments: 44-year-old male with a past medical history of hypertension presents to the emergency room for a chief complaint of rash x 3 days. Patient states he has painful lesions noted around his right eye and forehead. Denies any visual changes. Patient denies any itching or burning but states they are painful. Denies any pain in his ear. Denies any weakness of facial muscles. Denies fevers or chills.Patient has no other complaints at this time including shortness of breath, chest pain, abdominal pain, nausea or vomiting, headache, or visual changes. - Related Data Home Medications Medication Instructions Recorded Confirmed Venlafaxine HCl [Effexor] 75 mg PO HS 08/29/14 10/18/18 Ibuprofen [Motrin Ib] 400 mg PO Q6H PRN 10/18/18 10/18/18 Previous Rx's Medication Instructions Recorded Sulfamethox-Tmp 800-160Mg [Bactrim 1 each PO Q12HR #14 tab 10/18/18 Ds] Acyclovir [Zovirax] 800 mg PO DIRECTED 7 Days #35 03/27/20 tab predniSONE 50 mg PO DAILY #5 tablet 03/27/20 Allergies Allergy/AdvReac Type Severity Reaction Status Date / Time hydromorphone HCl Allergy Rash/Hives Verified 03/27/20 07:15 [From Dilaudid] shellfish derived [Shellfish] Allergy Anaphylaxis Verified 03/27/20 07:15 Review of Systems ROS Statement: Those systems with pertinent positive or pertinent negative responses have been documented in the HPI. ROS Other: All systems not noted in ROS Statement are negative. Past Medical History Past Medical History: Hypertension Additional Past Medical History / Comment(s): arthritis, kidney stone 2004 History of Any Multi-Drug Resistant Organisms: None Reported Past Surgical History: Orthopedic Surgery Additional Past Surgical History / Comment(s): lymph node removal, rotator cuff repair, biopsy right thigh Past Psychological History: Depression Smoking Status: Current every day smoker Past Alcohol Use History: Abuse, Daily Past Drug Use History: Marijuana General Exam Limitations: no limitations General appearance: alert, in no apparent distress Head exam: Present: atraumatic, normocephalic, normal inspection Eye exam: Present: PERRL, EOMI. Absent: scleral icterus, conjunctival inject ion, periorbital swelling, other (Patient hasn't minimal edema noted of the right eyelid with lesion of the right eyelid. No conjunctival injection. Patient denying any visual symptoms.) ENT exam: Present: normal exam, mucous membranes moist Neck exam: Present: normal inspection, full ROM. Absent: tenderness, meningismus, lymphadenopathy Respiratory exam: Present: normal lung sounds bilaterally. Absent: respiratory distress, wheezes, rales, rhonchi, stridor Cardiovascular Exam: Present: regular rate, normal rhythm, normal heart sounds. Absent: systolic murmur, diastolic murmur, rubs, gallop, clicks Skin exam: Present: other (Patient has patchy vesicular lesions mixed with maculopapular lesions in the V1 distribution on the right side of the head.) Course Vital Signs 03/27/20 07:13 Temperature 98.0 F Pulse Rate 80 Respiratory 18 Rate Blood Pressure 138/97 O2 Sat by Pulse 100 Oximetry Medical Decision Making - Medical Decision Making Patient likely has shingles in the V1 distribution. The eye was stained with fluorescein of examined with bob lamp, no sign of dendritic lesions noted. Negative Moss sign. Patient does have lesions in the V1 distribution confined to the right of midline. Patient was given acyclovir and steroids. I discussed he needs to follow up with ophthalmology on Sunday given risk of ocula r involvement. He is agreeable to this. He will return here for any worsening symptoms. He will also see his primary care provider. Disposition Clinical Impression: Herpes zoster Disposition: HOME SELF-CARE Condition: Good Instructions (If sedation given, give patient instructions): Shingles (ED) Additional Instructions: Please take medications as directed. You must follow up with ophthalmology on Sunday because there is concern this could affect your vision. Return to the emergency room if he has any worsening symptoms. Follow-up with primary care as well. Prescriptions: predniSONE 50 mg PO DAILY #5 tablet Acyclovir [Zovirax] 800 mg PO DIRECTED 7 Days #35 tab Is patient prescribed a controlled substance at d/c from ED?: No Referrals: Nonstaff,Physician [Primary Care Provider] - 1-2 days Winston Ha MD [STAFF PHYSICIAN] - 1-2 days Time of Disposition: 07:41
== END 2020-03-27 08:15 | disposition home or self-care (01) ==
LOC: EC 07:05
DX: B02.9 Zoster without complications (principal); F32.9 Major depressive disorder, single episode, unspecified; F17.200 Nicotine dependence, unspecified, uncomplicated; Z79.899 Other long term (current) drug therapy; Z88.8 Allergy status to other drugs, medicaments and biological substances; Z91.013 Allergy to seafood
CPT/HCPCS: 99282

== ENCOUNTER 2020-05-23 13:34 | Emergency (ER) | payer OTHER ==
[2020-05-23 13:42] VITALS: BP 152/110; PULSE 84; RESP 18; TEMP 98
[2020-05-23] MEDS ORDERED: predniSONE 50 MG TAB PO STA (13:52)
[2020-05-23] MEDS ORDERED: valACYclovir HCL 1,000 MG TABLET PO STA (13:52)
--- NOTE | 2020-05-23 13:56 | ED ---
Skin/Abscess/FB HPI - General Chief complaint: Skin/Abscess/Foreign Body Stated complaint: Poss shingles Time Seen by Provider: 05/23/20 13:42 Source: patient Mode of arrival: ambulatory Limitations: no limitations - History of Present Illness Initial comments: 45-year-old male patient presents to the emergency department today for evaluation of rash to his face. Patient states he developed a few bumps beneath the left eye starting yesterday. Denies any pain, numbness, tingling, or drainage from the area. States he did have a similar type rash on his right side in March and eventually ended up being diagnosed with shingles. States the rashes started exactly the same. He denies any blurred vision, double vision. Denies any eye pain or drainage. Denies any other past medical history. Denies fever or chills. - Related Data Home Medications Medication Instructions Recorded Confirmed Venlafaxine HCl [Effexor] 75 mg PO HS 08/29/14 10/18/18 Ibuprofen [Motrin Ib] 400 mg PO Q6H PRN 10/18/18 10/18/18 Previous Rx's Medication Instructions Recorded Sulfamethox-Tmp 800-160Mg [Bactrim 1 each PO Q12HR #14 tab 10/18/18 Ds] Acyclovir [Zovirax] 800 mg PO DIRECTED 7 Days #35 03/27/20 tab predniSONE 50 mg PO DAILY #5 tablet 03/27/20 predniSONE 50 mg PO DAILY #5 tablet 05/23/20 valACYclovir HCL [Valtrex] 1,000 mg PO TID #21 tablet 05/23/20 Allergies Allergy/AdvReac Type Severity Reaction Status Date / Time hydromorphone HCl Allergy Rash/Hives Verified 03/27/20 07:15 [From Dilaudid] shellfish derived [Shellfish] Allergy Anaphylaxis Verified 03/27/20 07:15 Review of Systems ROS Statement: Those systems with pertinent positive or pertinent negative responses have been documented in the HPI. ROS Other: All systems not noted in ROS Statement are negative. Past Medical History Past Medical History: Hypertension Additional Past Medical History / Comment(s): arthritis, kidney stone 2003 History of Any Multi-Drug Resistant Organisms: None Reported Past Surgical History: Orthopedic Surgery Additional Past Surgical History / Comment(s): lymph node removal, rotator cuff repair, biopsy right thigh Past Psychological History: Depression Smoking Status: Current some day smoker Past Alcohol Use History: None Reported, Abuse, Daily Past Drug Use History: Marijuana General Exam Limitations: no limitations General appearance: alert, in no apparent distress, other (This is a well- developed, well-nourished adult male patient in no acute distress. Vital signs upon presentation are temperature 98.0F, pulse 84, respirations 18, blood pressure 152/110, pulse ox 100% on room air.) Eye exam: Present: normal appearance, PERRL, EOMI, other (There are 4-5 papular lesions noted to the left suborbital region. No lid involvement. No swelling. No tenderness. ). Absent: scleral icterus, conjunctival injection, periorbital swelling, periorbital tenderness Cardiovascular Exam: Present: regular rate, normal rhythm, normal heart sounds. Absent: systolic murmur, diastolic murmur, rubs, gallop, clicks GI/Abdominal exam: Present: soft, normal bowel sounds. Absent: distended, tenderness, guarding, rebound, rigid Neurological exam: Present: alert, oriented X3, CN II-XII intact Psychiatric exam: Present: normal affect, normal mood Skin exam: Present: warm, dry, intact, normal color. Absent: rash Course Vital Signs 05/23/20 13:39 Temperature 98 F Pulse Rate 84 Respiratory 18 Rate Blood Pressure 152/110 O2 Sat by Pulse 100 Oximetry Medical Decision Making - Medical Decision Making 45-year-old male patient presents to the emergency department today for evaluation of rash to the left side of his face. Physical examination did reveal 4-5 papular lesions noted to the submental region on the left side. No erythema, swelling, tenderness to the area. No drainage. Patient did have a recent shingles infection on the right side of started exactly like this we will start acyclovir and prednisone just in case. He'll be discharged. Ophthalmology tomorrow. Return parameters discussed in detail. He verbalizes understanding and agrees this plan. Disposition Clinical Impression: Facial rash Disposition: HOME SELF-CARE Condition: Good Instructions (If sedation given, give patient instructions): Shingles (ED) Additional Instructions: Take medications as directed. Follow-up with ophthalmology for recheck tomorrow. Return to the emergency department immediately for any new, worsening, or concerning symptoms. Prescriptions: predniSONE 50 mg PO DAILY #5 tablet valACYclovir HCL [Valtrex] 1,000 mg PO TID #21 tablet Is patient prescribed a controlled substance at d/c from ED?: No Referrals: Nonstaff,Physician [Primary Care Provider] - 1-2 days Time of Disposition: 13:55
== END 2020-05-23 14:06 | disposition home or self-care (01) ==
LOC: EC 13:34
DX: R21 Rash and other nonspecific skin eruption (principal); L98.8 Other specified disorders of the skin and subcutaneous tissue; M19.90 Unspecified osteoarthritis, unspecified site; F32.9 Major depressive disorder, single episode, unspecified; F17.200 Nicotine dependence, unspecified, uncomplicated; Z79.899 Other long term (current) drug therapy
CPT/HCPCS: 99282; J7512

== ENCOUNTER 2020-08-21 19:55 | Emergency (ER) | payer OTHER ==
[2020-08-21 20:00] VITALS: RESP 18; TEMP 98
--- NOTE | 2020-08-21 20:05 | ED ---
General Adult HPI - General Chief complaint: Abdominal Pain Stated complaint: right side Pain Time Seen by Provider: 08/21/20 20:01 Source: patient Mode of arrival: ambulatory Limitations: no limitations - History of Present Illness Initial comments: Patient presents the ED with his children's mother for evaluation. Patient states that he had been a heavy drinker up until 6 months ago when he quit. Patient states that a little over a week ago he began to drink heavily again, but he states that he quit again 5 days ago. Patient states that for the past 3 days, he has had right flank/right upper quadrant abdominal pain. Patient denies trauma or injury, fever or chills, headache, focal neuro deficit, chest pain, dyspnea, cough or cold symptoms, nausea or vomiting, diarrhea or constipation, bloody or melanotic stool, dysuria/hematuria/urinary frequency/urinary symptoms, or any other symptoms or complaints. - Related Data Home Medications Medication Instructions Recorded Confirmed Venlafaxine HCl [Effexor] 75 mg PO HS 08/29/14 10/18/18 Ibuprofen [Motrin Ib] 400 mg PO Q6H PRN 10/18/18 10/18/18 Previous Rx's Medication Instructions Recorded Sulfamethox-Tmp 800-160Mg [Bactrim 1 each PO Q12HR #14 tab 10/18/18 Ds] Acyclovir [Zovirax] 800 mg PO DIRECTED 7 Days #35 03/27/20 tab predniSONE 50 mg PO DAILY #5 tablet 03/27/20 predniSONE 50 mg PO DAILY #5 tablet 05/23/20 valACYclovir HCL [Valtrex] 1,000 mg PO TID #21 tablet 05/23/20 Allergies Allergy/AdvReac Type Severity Reaction Status Date / Time hydromorphone HCl Allergy Rash/Hives Verified 08/21/20 20:00 [From Dilaudid] shellfish derived [Shellfish] Allergy Anaphylaxis Verified 08/21/20 20:00 Review of Systems ROS Statement: Those systems with pertinent positive or pertinent negative responses have been documented in the HPI. ROS Other: All systems not noted in ROS Statement are negative. Past Medical History Past Medical History: Hypertension Additional Past Medical History / Comment(s): arthritis, kidney stone 2003, History of Any Multi-Drug Resistant Organisms: None Reported Past Surgical History: Orthopedic Surgery Additional Past Surgical History / Comment(s): lymph node removal, rotator cuff repair, biopsy right thigh, Past Psychological History: Depression Smoking Status: Current some day smoker Past Alcohol Use History: None Reported, Abuse, Daily Past Drug Use History: Marijuana General Exam Limitations: no limitations General appearance: alert, in no apparent distress Head exam: Present: atraumatic, normocephalic Eye exam: Present: normal appearance, EOMI ENT exam: Present: mucous membranes moist Neck exam: Present: other (Trachea is in midline) Respiratory exam: Present: normal lung sounds bilaterally. Absent: respiratory distress, wheezes, rales, rhonchi, stridor Cardiovascular Exam: Present: regular rate, normal rhythm, normal heart sounds, other (Normal radial pulses bilaterally) GI/Abdominal exam: Present: soft, other (Mild right flank tenderness; no McBurney's point tenderness; negative Rodrigez's sign). Absent: distended, guarding, rebound Extremities exam: Absent: tenderness, pedal edema, calf tenderness Back exam: Absent: CVA tenderness (R), CVA tenderness (L) Neurological exam: Present: alert, oriented X3. Absent: motor sensory deficit Psychiatric exam: Present: normal affect, normal mood Skin exam: Present: warm, dry, intact, normal color Course Vital Signs 08/21/20 08/21/20 19:57 22:06 Temperature 98.0 F 98.0 F Pulse Rate 105 H 101 H Respiratory 18 18 Rate Blood Pressure 148/102 147/97 O2 Sat by Pulse 99 99 Oximetry Medical Decision Making - Medical Decision Making Patient states that his pain has improved with ED treatment. Patient's abdomen remains soft and without any surgical signs on examination. Patient is afebrile and without leukocytosis. Patient's labs are fairly unremarkable. I do not think that the patient's abdominal pain is from a surgical or emergent medical condition. Will discharge patient home with his children's mother at this time. Patient was counseled about abdominal pain, and he was clearly explained return and follow-up instructions. Patient was instructed to have a low threshold for return to the ED should his symptoms worsen. Patient was instructed to follow up closely with his primary care provider. Patient feels comfortable with this plan. - Lab Data Result diagrams: 08/21/20 20:44 08/21/20 20:44 Lab Results 08/21/20 08/21/20 08/21/20 Range/Units 20:44 20:44 20:44 WBC 4.6 (3.8-10.6) k/uL RBC 5.41 (4.30-5.90) m/uL Hgb 13.1 (13.0-17.5) gm/dL Hct 40.5 (39.0-53.0) % MCV 74.9 L (80.0-100.0) fL MCH 24.3 L (25.0-35.0) pg MCHC 32.4 (31.0-37.0) g/dL RDW 14.2 (11.5-15.5) % Plt Count 256 (150-450) k/uL MPV 7.1 Neutrophils % 56 % Lymphocytes % 30 % Monocytes % 10 % Eosinophils % 1 % Basophils % 1 % Neutrophils # 2.6 (1.3-7.7) k/uL Lymphocytes # 1.4 (1.0-4.8) k/uL Monocytes # 0.5 (0-1.0) k/uL Eosinophils # 0.0 (0-0.7) k/uL Basophils # 0.0 (0-0.2) k/uL Microcytosis Slight Sodium 138 (137-145) mmol/L Potassium 3.8 (3.5-5.1) mmol/L Chloride 104 (98-107) mmol/L Carbon Dioxide 25 (22-30) mmol/L Anion Gap 9 mmol/L BUN 20 (9-20) mg/dL Creatinine 1.02 (0.66-1.25) mg/dL Est GFR (CKD-EPI)AfAm >90 (>60 ml/min/1.73 sqM) Est GFR (CKD-EPI)NonAf 90 (>60 ml/min/1.73 sqM) Glucose 94 (74-99) mg/dL Calcium 9.8 (8.4-10.2) mg/dL Total Bilirubin 0.5 (0.2-1.3) mg/dL AST 44 (17-59) U/L ALT 30 (4-49) U/L Alkaline Phosphatase 77 (38-126) U/L Total Protein 7.9 (6.3-8.2) g/dL Albumin 4.7 (3.5-5.0) g/dL Amylase 104 (30-110) U/L Lipase 163 (23-300) U/L Urine Color Yellow Urine Appearance Clear (Clear) Urine pH 5.5 (5.0-8.0) Ur Specific [place] 1.032 (1.001-1.035) Urine Protein 1+ H (Negative) Urine Glucose (UA) Negative (Negative) Urine Ketones Trace H (Negative) Urine Blood Negative (Negative) Urine Nitrite Negative (Negative) Urine Bilirubin Negative (Negative) Urine Urobilinogen <2.0 (<2.0) mg/dL Ur Leukocyte Esterase Negative (Negative) Urine RBC 1 (0-5) /hpf Urine WBC 1 (0-5) /hpf Urine Mucus Occasional H (None) /hpf Disposition Clinical Impression: Abdominal pain Disposition: HOME SELF-CARE Condition: Stable Instructions (If sedation given, give patient instructions): Abdominal Pain (ED) Additional Instructions: Return to the ER immediately should you develop new or worsening pain, a fever, vomiting, feeling dizzy or faint, shortness of breath, or new or worsening symptoms. Follow up closely with your primary care provider. Is patient prescribed a controlled substance at d/c from ED?: No Referrals: Nonstaff,Physician [REFERRING] - 1-2 days Mik Pierce MD [REFERRING] - 1-2 days Time of Disposition: 22:10
[2020-08-21] MEDS ORDERED: MORPHINE SULFATE 4 MG/ML SYRINGE IV STA (20:26)
[2020-08-21] MEDS ORDERED: SODIUM CHLORIDE 0.9% 1,000 ML IV STA (20:26)
[2020-08-21 21:05] LABS: Basophils % (A) 1 %; Eosinophils % (A) 1 %; HCT 40.5 % (39.0-53.0); HGB 13.1 gm/dL (13.0-17.5); Lymphocytes # (A) 1.4 k/uL (1.0-4.8); Lymphocytes % (A) 30 %; MCH 24.3 pg (25.0-35.0); MCHC 32.4 g/dL (31.0-37.0); MCV 74.9 fL (80.0-100.0); Mean Platelet Volume 7.1; Microcytosis Slight; Monocytes # (A) 0.5 k/uL (0-1.0); Monocytes % (A) 10 %; Neutrophils # (A) 2.6 k/uL (1.3-7.7); Neutrophils % (A) 56 %; Platelet Count 256 k/uL (150-450); RBC 5.41 m/uL (4.30-5.90); RDW 14.2 % (11.5-15.5); WBC 4.6 k/uL (3.8-10.6)
[2020-08-21 21:06] LABS: Appearance,Urine Clear (Clear); Bilirubin,Urine Negative (Negative); Blood,Urine Negative (Negative); Color,Urine Yellow; Glucose,Urine (UA) Negative (Negative); Ketones,Urine Trace (Negative); Leukocyte Esterase,Urine Negative (Negative); Mucus,Urine Occasional /hpf; Nitrite,Urine Negative (Negative); PH, Urine 5.5 (5.0-8.0); Protein,Urine 1+ (Negative); RBC,Urine 1 /hpf (0-5); Specific Gravity,Urine 1.032 (1.001-1.035); Urobilinogen,Urine <2.0 mg/dL (<2.0); WBC,Urine 1 /hpf (0-5)
[2020-08-21 21:28] LABS: ALT 30 U/L (4-49); AST 44 U/L (17-59); African American GFR (CKD) >90 (>60 ml/min/1.73 sqM); Albumin 4.7 g/dL (3.5-5.0); Alkaline Phosphatase 77 U/L (38-126); Amylase 104 U/L (30-110); Anion Gap 9 mmol/L; Blood Urea Nitrogen 20 mg/dL (9-20); Calcium 9.8 mg/dL (8.4-10.2); Carbon Dioxide 25 mmol/L (22-30); Chloride 104 mmol/L (98-107); Glucose 94 mg/dL (74-99); Lipase 163 U/L (23-300); Non-African American GFR(CKD) 90 (>60 ml/min/1.73 sqM); Potassium 3.8 mmol/L (3.5-5.1); Sodium 138 mmol/L (137-145); Total Bilirubin 0.5 mg/dL (0.2-1.3); Total Protein 7.9 g/dL (6.3-8.2)
[2020-08-21 22:09] VITALS: BP 147/97; PULSE 101
== END 2020-08-21 22:11 | disposition home or self-care (01) ==
LOC: EC 19:55
DX: R10.11 Right upper quadrant pain (principal); F32.9 Major depressive disorder, single episode, unspecified; I10 Essential (primary) hypertension; F17.200 Nicotine dependence, unspecified, uncomplicated; F12.90 Cannabis use, unspecified, uncomplicated; Z79.1 Long term (current) use of non-steroidal anti-inflammatories (NSAID); Z79.52 Long term (current) use of systemic steroids
CPT/HCPCS: 36415; 80053; 82150; 83690; 85025; 81001; 99284; 96374; 96361; J2270

== ENCOUNTER 2021-04-10 23:23 | Emergency (ER) | payer OTHER ==
[2021-04-10 23:39] VITALS: RESP 18
[2021-04-10] MEDS ORDERED: LIDOCAINE 1% INJ 10MG/ML (20 ML MDV) SQ STA (23:55)
--- NOTE | 2021-04-11 00:11 | ED ---
Wound/Laceration HPI - General Chief Complaint: Wound/Laceration Stated Complaint: LT thumb lac Time Seen by Provider: 04/11/21 00:04 Source: patient, RN notes reviewed Mode of arrival: ambulatory Limitations: no limitations - History of Present Illness Initial Comments: Patient is a 45-year-old male that presents emergency room complaining of a laceration to his left thumb. He notes he was trying to cut some steak sandwich when he actually cut his thumb. He notes that he is up-to-date on his tetanus shot. He denied any other issues or complaints. He was otherwise well- appearing. He denied chest pain first breath headache nausea vomiting diarrhea constipation fever fatigue chills. - Related Data Home Medications Medication Instructions Recorded Confirmed Venlafaxine HCl [Effexor] 75 mg PO HS 08/29/14 10/18/18 Ibuprofen [Motrin Ib] 400 mg PO Q6H PRN 10/18/18 10/18/18 Previous Rx's Medication Instructions Recorded Sulfamethox-Tmp 800-160Mg [Bactrim 1 each PO Q12HR #14 tab 10/18/18 Ds] Acyclovir [Zovirax] 800 mg PO DIRECTED 7 Days #35 03/27/20 tab predniSONE 50 mg PO DAILY #5 tablet 03/27/20 predniSONE 50 mg PO DAILY #5 tablet 05/23/20 valACYclovir HCL [Valtrex] 1,000 mg PO TID #21 tablet 05/23/20 Allergies Allergy/AdvReac Type Severity Reaction Status Date / Time hydromorphone HCl Allergy Rash/Hives Verified 04/10/21 23:39 [From Dilaudid] shellfish derived [Shellfish] Allergy Anaphylaxis Verified 04/10/21 23:39 Review of Systems ROS Statement: Those systems with pertinent positive or pertinent negative responses have been documented in the HPI. ROS Other: All systems not noted in ROS Statement are negative. Past Medical History Past Medical History: Hypertension Additional Past Medical History / Comment(s): arthritis, kidney stone 2003, History of Any Multi-Drug Resistant Organisms: None Reported Past Surgical History: Orthopedic Surgery Additional Past Surgical History / Comment(s): lymph node removal, rotator cuff repair, biopsy right thigh, Past Psychological History: Depression Smoking Status: Current some day smoker Past Alcohol Use History: None Reported, Abuse, Daily Past Drug Use History: Marijuana General Exam Limitations: no limitations General appearance: alert, in no apparent distress Head exam: Present: atraumatic, normocephalic, normal inspection Eye exam: Present: normal appearance, PERRL, EOMI. Absent: scleral icterus, conjunctival injection, periorbital swelling ENT exam: Present: normal exam, mucous membranes moist Neck exam: Present: normal inspection Respiratory exam: Present: normal lung sounds bilaterally. Absent: respiratory distress, wheezes, rales, rhonchi, stridor Cardiovascular Exam: Present: regular rate, normal rhythm, normal heart sounds. Absent: systolic murmur, diastolic murmur, rubs, gallop, clicks Extremities exam: Present: normal inspection, full ROM, normal capillary refill. Absent: tenderness, pedal edema, joint swelling, calf tenderness Neurological exam: Present: alert, oriented X3 Psychiatric exam: Present: normal affect, normal mood Skin exam: Present: warm, dry, intact, normal color. Absent: rash Expanded Type of lesion: Present: laceration (Insertion of left lateral thumb clean margins, nonbleeding measuring approximately) Course Vital Signs 04/10/21 23:36 Temperature 98.2 F Pulse Rate 82 Respiratory 18 Rate Blood Pressure 135/75 O2 Sat by Pulse 98 Oximetry Procedures - Laceration Laceration #1 Consent Obtained: verbal consent Indication: laceration Site: hand (Left thumb) Size (cm): 4 Description: linear Depth: simple, single layer Anesthetic Used: lidocaine 1% Anesthesia Technique: nerve block Amount (mls): 8 Pre-repair: irrigated extensively Type of Sutures: nylon Size of Sutures: 4-0 Number of Sutures: 4 Technique: simple, interrupted Patient Tolerated Procedure: well, no complications Medical Decision Making - Medical Decision Making 44-year-old male with a left thumb laceration. Patient up-to-date on tetanus. Lidocaine ordered. Patient tolerated suturing well. Case discussed with Dr. Manning outpatient discharge home with a primary care. Disposition Clinical Impression: Laceration Disposition: HOME SELF-CARE Condition: Stable Instructions (If sedation given, give patient instructions): Laceration (ED), Care For Your Stitches (ED) Additional Instructions: Please return to the Emergency Department if symptoms worsen or any other concerns. Please return in 7-10 days to have sutures removed. Can use Neosporin ointment to cover. Take, Motrin as needed for pain. follow up with primary care as needed. Is patient prescribed a controlled substance at d/c from ED?: No Referrals: None,Stated [Primary Care Provider] - 1-2 days Time of Disposition: 00:10
[2021-04-11 00:30] VITALS: BP 129/79; PULSE 79; TEMP 98
== END 2021-04-11 00:29 | disposition home or self-care (01) ==
LOC: EC 23:23
DX: S61.012A Laceration without foreign body of left thumb without damage to nail, initial encounter (principal); I10 Essential (primary) hypertension; F32.9 Major depressive disorder, single episode, unspecified; F17.200 Nicotine dependence, unspecified, uncomplicated; F12.90 Cannabis use, unspecified, uncomplicated; Z79.1 Long term (current) use of non-steroidal anti-inflammatories (NSAID); Z79.52 Long term (current) use of systemic steroids; Z79.899 Other long term (current) drug therapy; Z88.5 Allergy status to narcotic agent; W26.8XXA Contact with other sharp object(s), not elsewhere classified, initial encounter
CPT/HCPCS: 12002; 99282; J2001

== ENCOUNTER 2022-03-19 10:46 | Emergency (ER) | payer OTHER ==
[2022-03-19 10:54] VITALS: TEMP 98.4
[2022-03-19] MEDS ORDERED: SODIUM CHLORIDE 0.9% 1,000 ML IV STA (11:42)
[2022-03-19 12:17] LABS: Appearance,Urine Clear (Clear); Bilirubin,Urine Negative (Negative); Blood,Urine Negative (Negative); Color,Urine Light Yellow; Glucose,Urine (UA) Negative (Negative); Ketones,Urine Negative (Negative); Leukocyte Esterase,Urine Negative (Negative); Nitrite,Urine Negative (Negative); PH, Urine 5.5 (5.0-8.0); Protein,Urine Negative (Negative); Specific Gravity,Urine 1.023 (1.001-1.035); Urobilinogen,Urine <2.0 mg/dL (<2.0)
[2022-03-19 12:33] LABS: HCT 44.1 % (39.0-53.0); HGB 13.6 gm/dL (13.0-17.5); Hypochromasia Slight; MCH 23.4 pg (25.0-35.0); MCHC 30.9 g/dL (31.0-37.0); MCV 75.6 fL (80.0-100.0); Mean Platelet Volume 7.6; Microcytosis Slight; Platelet Count 279 k/uL (150-450); RBC 5.83 m/uL (4.30-5.90); RDW 14.5 % (11.5-15.5)
[2022-03-19 13:15] LABS: Lymphocytes # (M) 1.29 k/uL (1.0-4.8); Monocytes # (M) 0.33 k/uL (0-1.0); Neutrophils # (M) 1.38 k/uL (1.3-7.7); Neutrophils % (M) 46 %; Nucleated Red Blood Cells 0 /100 WBC (0-0); Total Cells Counted 100
[2022-03-19 13:21] LABS: ALT 25 U/L (4-49); AST 31 U/L (17-59); African American GFR (CKD) >90 (>60 ml/min/1.73 sqM); Albumin 4.4 g/dL (3.5-5.0); Alkaline Phosphatase 79 U/L (38-126); Anion Gap 8 mmol/L; Blood Urea Nitrogen 19 mg/dL (9-20); Calcium 9.5 mg/dL (8.4-10.2); Carbon Dioxide 27 mmol/L (22-30); Chloride 104 mmol/L (98-107); Glucose 97 mg/dL (74-99); Lipase 110 U/L (23-300); Non-African American GFR(CKD) 79 (>60 ml/min/1.73 sqM); Potassium 4.5 mmol/L (3.5-5.1); Sodium 139 mmol/L (137-145); Total Bilirubin 0.3 mg/dL (0.2-1.3); Total Protein 6.9 g/dL (6.3-8.2)
[2022-03-19] MEDS ORDERED: KETOROLAC 15 MG/ML 1 ML VIAL IVP STA (13:38)
--- NOTE | 2022-03-19 14:01 | XR ---
EXAMINATION TYPE: XR ribs RT DATE OF EXAM: 03/19/2022 1:49 PM INDICATION: Patient age:Male; 46 years old; Reason for study: pain; COMPARISON: 02/02/2016 TECHNIQUE: Frontal and oblique views of the right ribs with frontal chest radiograph. FINDINGS: The ribs have a normal appearance. No evidence of fracture. Overall, the lungs are clear. The cardiac silhouette is normal in size. The remaining osseous structures are intact. Remote appea ring fracture of right rib #10 costochondral junction. Postsurgical repair changes on the right shoul spring. IMPRESSION RIBS: No acute osseous pathology.
--- NOTE | 2022-03-19 14:35 | ED ---
Abdominal Pain HPI - General Chief Complaint: Abdominal Pain Stated Complaint: Abd pain Time Seen by Provider: 03/19/22 11:18 Source: patient Mode of arrival: ambulatory Limitations: no limitations - History of Present Illness Initial Comments: Patient is a 46-year-old male who presents to the emergency department with a chief complaint of right rib pain. Patient states symptoms started approximately 3 weeks ago while he was doing abdominal crunches. Pain is intermittent and worse with twisting and bending of the torso. Patient went to urgent care for evaluation however was sent to the emergency department due to concern for jaundice. Patient denies fever, chills, nausea, vomiting, burning with urination, blood in the urine. Does admit to history of kidney stone several years ago. States this does not feel like a kidney stone. Reports oc casional alcohol use once or twice a month. Reports marijuana use otherwise denies drug use. Patient has no history of abdominal conditions or surgery. - Related Data Home Medications Medication Instructions Recorded Confirmed Venlafaxine HCl [Effexor] 75 mg PO HS 08/29/14 10/18/18 Ibuprofen [Motrin Ib] 400 mg PO Q6H PRN 10/18/18 10/18/18 Previous Rx's Medication Instructions Recorded Sulfamethox-Tmp 800-160Mg [Bactrim 1 each PO Q12HR #14 tab 10/18/18 Ds] Acyclovir [Zovirax] 800 mg PO DIRECTED 7 Days #35 03/27/20 tab predniSONE 50 mg PO DAILY #5 tablet 03/27/20 predniSONE 50 mg PO DAILY #5 tablet 05/23/20 valACYclovir HCL [Valtrex] 1,000 mg PO TID #21 tablet 05/23/20 Ketorolac [Toradol] 10 mg PO Q8HR PRN #21 tab 03/19/22 Allergies Allergy/AdvReac Type Severity Reaction Status Date / Time hydromorphone HCl Allergy Rash/Hives Verified 03/19/22 10:54 [From Dilaudid] shellfish derived [Shellfish] Allergy Anaphylaxis Verified 03/19/22 10:54 Review of Systems ROS Statement: Those systems with pertinent positive or pertinent negative responses have been documented in the HPI. ROS Other: All systems not noted in ROS Statement are negative. Past Medical History Past Medical History: Hypertension Additional Past Medical History / Comment(s): arthritis, kidney stone 2003, History of Any Multi-Drug Resistant Organisms: None Reported Past Surgical History: Orthopedic Surgery Additional Past Surgical History / Comment(s): lymph node removal, rotator cuff repair, biopsy right thigh, Past Psychological History: Depression Smoking Status: Current every day smoker Past Alcohol Use History: None Reported, Abuse, Daily Past Drug Use History: Marijuana General Exam Limitations: no limitations General appearance: alert, in no apparent distress Respiratory exam: Present: normal lung sounds bilaterally, other (tender nodule palpated over lateral lower ribs ). Absent: respiratory distress, wheezes, rales, rhonchi, stridor Cardiovascular Exam: Present: regular rate, normal rhythm, normal heart sounds. Absent: systolic murmur, diastolic murmur, rubs, gallop, clicks GI/Abdominal exam: Present: soft, normal bowel sounds. Absent: distended, tenderness, guarding, rebound, rigid Course Vital Signs 03/19/22 03/19/22 03/19/22 10:52 12:27 14:53 Temperature 98.4 F Pulse Rate 96 77 68 Respiratory 18 20 16 Rate Blood Pressure 131/81 140/89 140/60 O2 Sat by Pulse 99 97 98 Oximetry Medical Decision Making - Medical Decision Making This is a 46-year-old male presenting with right rib pain. Patient was sent from urgent care due to jaundice however I do not appreciate any jaundice. There is no scleral icterus. \ Laboratory studies obtained. LFT is within normal limits. Bilirubin is within normal limits. Urinalysis negative for bilirubin. right rib X-ray obtained which shows no acute process however does show remote appearing fracture of the right rib #10 at the costalchondral junction. Results discussed with patient. Fracture is not acute. Pain likely MSK etiology. Patient has an appointment with his primary care provider next week and will follow-up. He is to avoid exacerbating exercises until symptoms resolve. I will send him home with Toradol for pain. Dr. Hansen is my attending. - Lab Data Result diagrams: 03/19/22 11:46 03/19/22 13:00 Lab Results 03/19/22 03/19/22 03/19/22 Range/Units 11:46 11:46 13:00 WBC 3.0 L (3.8-10.6) k/uL RBC 5.83 (4.30-5.90) m/uL Hgb 13.6 (13.0-17.5) gm/dL Hct 44.1 (39.0-53.0) % MCV 75.6 L (80.0-100.0) fL MCH 23.4 L (25.0-35.0) pg MCHC 30.9 L (31.0-37.0) g/dL RDW 14.5 (11.5-15.5) % Plt Count 279 (150-450) k/uL MPV 7.6 Neutrophils % (Manual) 46 % Lymphocytes % (Manual) 43 % Monocytes % (Manual) 11 % Neutrophils # (Manual) 1.38 (1.3-7.7) k/uL Lymphocytes # (Manual) 1.29 (1.0-4.8) k/uL Monocytes # (Manual) 0.33 (0-1.0) k/uL Nucleated RBCs 0 (0-0) /100 WBC Manual Slide Review Performed Hypochromasia Slight Microcytosis Slight Sodium 139 (137-145) mmol/L Potassium 4.5 (3.5-5.1) mmol/L Chloride 104 (98-107) mmol/L Carbon Dioxide 27 (22-30) mmol/L Anion Gap 8 mmol/L BUN 19 (9-20) mg/dL Creatinine 1.13 (0.66-1.25) mg/dL Est GFR (CKD-EPI)AfAm >90 (>60 ml/min/1.73 sqM) Est GFR (CKD-EPI)NonAf 79 (>60 ml/min/1.73 sqM) Glucose 97 (74-99) mg/dL Calcium 9.5 (8.4-10.2) mg/dL Total Bilirubin 0.3 (0.2-1.3) mg/dL AST 31 (17-59) U/L ALT 25 (4-49) U/L Alkaline Phosphatase 79 (38-126) U/L Total Protein 6.9 (6.3-8.2) g/dL Albumin 4.4 (3.5-5.0) g/dL Lipase 110 (23-300) U/L Urine Color Light Yellow Urine Appearance Clear (Clear) Urine pH 5.5 (5.0-8.0) Ur Specific [place] 1.023 (1.001-1.035) Urine Protein Negative (Negative) Urine Glucose (UA) Negative (Negative) Urine Ketones Negative (Negative) Urine Blood Negative (Negative) Urine Nitrite Negative (Negative) Urine Bilirubin Negative (Negative) Urine Urobilinogen <2.0 (<2.0) mg/dL Ur Leukocyte Esterase Negative (Negative) Disposition Clinical Impression: Rib pain on right side Disposition: HOME SELF-CARE Condition: Good Instructions (If sedation given, give patient instructions): Rib Fracture (ED) Additional Instructions: Take medication as directed. Follow-up with primary care provider in one to 2 days. Return to the emergency department experience new, concerning, or wo rsening symptoms. Prescriptions: Ketorolac [Toradol] 10 mg PO Q8HR PRN #21 tab PRN Reason: Pain Is patient prescribed a controlled substance at d/c from ED?: No Referrals: Nonstaff,Physician [Primary Care Provider] - 1-2 days Time of Disposition: 14:35
[2022-03-19 14:54] VITALS: BP 140/60; PULSE 68; RESP 16
== END 2022-03-19 14:54 | disposition home or self-care (01) ==
LOC: EC 10:46
DX: R07.82 Intercostal pain (principal); I10 Essential (primary) hypertension; F32.A Depression, unspecified; F17.200 Nicotine dependence, unspecified, uncomplicated; F12.90 Cannabis use, unspecified, uncomplicated; Z88.5 Allergy status to narcotic agent; Z91.013 Allergy to seafood; Z79.899 Other long term (current) drug therapy
CPT/HCPCS: 36415; 80053; 83690; 85025; 81003; 71100; 99283; 96374; 96361; J1885

== ENCOUNTER 2022-11-22 09:17 | Emergency (ER) | payer OTHER ==
[2022-11-22] MEDS ORDERED: ASPIRIN 81 MG PO STA (09:47)
[2022-11-22] MEDS ORDERED: ORPHENADRINE 30 MG/ML 2 ML VIAL IVP STA (09:53)
[2022-11-22] MEDS ORDERED: KETOROLAC 15 MG/ML 1 ML VIAL IVP STA (09:53)
[2022-11-22 10:03] VITALS: RESP 16
[2022-11-22 10:03] LABS: Basophils % (A) 1 %; Eosinophils # (A) 0.1 k/uL (0-0.7); Eosinophils % (A) 2 %; HCT 41.3 % (39.0-53.0); HGB 12.5 gm/dL (13.0-17.5); Lymphocytes # (A) 1.2 k/uL (1.0-4.8); Lymphocytes % (A) 34 %; MCH 22.3 pg (25.0-35.0); MCHC 30.4 g/dL (31.0-37.0); MCV 73.6 fL (80.0-100.0); Mean Platelet Volume 7.2; Microcytosis Slight; Monocytes # (A) 0.4 k/uL (0-1.0); Monocytes % (A) 10 %; Neutrophils # (A) 1.7 k/uL (1.3-7.7); Neutrophils % (A) 51 %; Platelet Count 238 k/uL (150-450); RBC 5.61 m/uL (4.30-5.90); RDW 14.3 % (11.5-15.5); WBC 3.4 k/uL (3.8-10.6)
[2022-11-22 10:16] LABS: ALT 28 U/L (4-49); AST 34 U/L (17-59); African American GFR (CKD) >90 (>60 ml/min/1.73 sqM); Alkaline Phosphatase 84 U/L (38-126); Anion Gap 8 mmol/L; Blood Urea Nitrogen 16 mg/dL (9-20); Calcium 8.7 mg/dL (8.4-10.2); Carbon Dioxide 24 mmol/L (22-30); Chloride 109 mmol/L (98-107); Glucose 98 mg/dL (74-99); INR 0.9 (<1.2); Magnesium 2.1 mg/dL (1.6-2.3); Non-African American GFR(CKD) >90 (>60 ml/min/1.73 sqM); Partial Thromboplastin Time 23.2 sec (22.0-30.0); Potassium 3.9 mmol/L (3.5-5.1); Prothrombin Time 9.8 sec (9.0-12.0); Sodium 141 mmol/L (137-145); Total Bilirubin 0.2 mg/dL (0.2-1.3); Total Protein 6.9 g/dL (6.3-8.2)
--- NOTE | 2022-11-22 10:21 | XR ---
EXAMINATION TYPE: XR chest 2V DATE OF EXAM: 11/22/2022 COMPARISON: 03/19/2022 TECHNIQUE: PA and lateral views submitted. HISTORY: Chest pain FINDINGS: The lungs are clear and there is no pneumothorax, pleural effusion, or focal pneumonia. Heart size normal and no overt failure. Osseous structures intact. Postsurgical change right shoulder. IMPRESSION: 1. No acute process.
--- NOTE | 2022-11-22 10:42 | ED ---
Chest Pain HPI - General Chief Complaint: Chest Pain Stated Complaint: chest pain Time Seen by Provider: 11/22/22 09:36 Source: patient, RN notes reviewed Mode of arrival: ambulatory Limitations: no limitations - History of Present Illness Initial Comments: 47-year-old male presents emergency Department with chief complaint of chest pain. Patient states is present for 6 days. States it's worse with any movement or deep inspiration. Does not feel short of breath states she is painful take a deep breath is no prior cardiac disease denies any trauma he states is very active and works out and regular basis but states because the pain is been unable to work out. Patient denies any back pain no abdominal pain no headache no other complaints. - Related Data Home Medications Medication Instructions Recorded Confirmed Venlafaxine HCl [Effexor] 75 mg PO HS 08/29/14 10/18/18 Ibuprofen [Motrin Ib] 400 mg PO Q6H PRN 10/18/18 10/18/18 Previous Rx's Medication Instructions Recorded Sulfamethox-Tmp 800-160Mg [Bactrim 1 each PO Q12HR #14 tab 10/18/18 Ds] Acyclovir [Zovirax] 800 mg PO DIRECTED 7 Days #35 03/27/20 tab predniSONE 50 mg PO DAILY #5 tablet 03/27/20 predniSONE 50 mg PO DAILY #5 tablet 05/23/20 valACYclovir HCL [Valtrex] 1,000 mg PO TID #21 tablet 05/23/20 Ketorolac [Toradol] 10 mg PO Q8HR PRN #21 tab 03/19/22 Ketorolac [Toradol] 10 mg PO Q8HR #15 tab 11/22/22 Allergies Allergy/AdvReac Type Severity Reaction Status Date / Time hydromorphone HCl Allergy Rash/Hives Verified 11/22/22 09:34 [From Dilaudid] shellfish derived [Shellfish] Allergy Anaphylaxis Verified 11/22/22 09:34 Review of Systems ROS Statement: Those systems with pertinent positive or pertinent negative responses have been documented in the HPI. ROS Other: All systems not noted in ROS Statement are negative. EKG Findings - EKG Comments: EKG Findings:: 9:41 and sinus rhythm with first-degree block rate of 60 CO 222 QRS 89 QT status QTC 424/424 - EKG Results: EKG: interpreted by [facility] Past Medical History Past Medical History: Hypertension Additional Past Medical History / Comment(s): arthritis, kidney stone 2004, fatty liver History of Any Multi-Drug Resistant Organisms: None Reported Past Surgical History: Orthopedic Surgery Additional Past Surgical History / Comment(s): lymph node removal, rotator cuff repair, biopsy right thigh, Past Psychological History: Depression Smoking Status: Current every day smoker Past Alcohol Use History: None Reported, Abuse, Daily Past Drug Use History: Marijuana General Exam Limitations: no limitations General appearance: alert, in no apparent distress Head exam: Present: atraumatic, normocephalic, normal inspection Eye exam: Present: normal appearance, PERRL, EOMI. Absent: scleral icterus, conjunctival injection, periorbital swelling ENT exam: Present: normal exam, mucous membranes moist Neck exam: Present: normal inspection, full ROM. Absent: tenderness, meningismus, lymphadenopathy Respiratory exam: Present: normal lung sounds bilaterally, chest wall tenderness (Tenderness along the sternum bilaterally). Absent: respiratory distress, wheezes, rales, rhonchi, stridor Cardiovascular Exam: Present: regular rate, normal rhythm, normal heart sounds. Absent: systolic murmur, diastolic murmur, rubs, gallop, clicks GI/Abdominal exam: Present: soft, normal bowel sounds. Absent: distended, tenderness, guarding, rebound, rigid Extremities exam: Present: other (Extremity pulses equal bilaterally upper and lower) Course Vital Signs 11/22/22 11/22/22 11/22/22 09:32 10:02 11:27 Temperature 98.4 F 98.2 F Pulse Rate 62 57 L 55 L Respiratory 20 16 16 Rate Blood Pressure 146/92 134/84 131/91 O2 Sat by Pulse 99 100 98 Oximetry Chest Pain MDM - MDM Was pt. sent in by a medical professional or institution (, PA, MACHINE II ENGRAVER, urgent care, hospital, or fpc...) When possible be specific @ -No Did you speak to anyone other than the patient for history (EMS, parent, family, police, friend...)? What history was obtained from this source @ -No Did you review nursing and triage notes (agree or disagree)? Why? @ -I reviewed and agree with nursing and triage notes Were old charts reviewed (outside hosp., previous admission, EMS record, old EKG, old radiological studies, urgent care reports/EKG's, fpc records)? Report findings @ -No old charts were reviewed Differential Diagnosis (chest pain, altered mental status, abdominal pain women, abdominal pain men, vaginal bleeding, weakness, fever, dyspnea, syncope, headache, dizziness, GI bleed, back pain, seizure, CVA, palpatations, mental health, musculoskeletal)? @ -Differential Chest Pain: Stable Angina, Unstable Angina, STEMI, NSTEMI Aortic Dissection, Pneumothorax, Musculoskeletal, Esophageal Spasm GERD, Cholecystitis, Pancreatitis, Zoster, this is not meant to be an all-inclusive list. le EKG interpreted by me (3pts min.). @ -As above X-rays interpreted by me (1pt min.). @ -Chest x-ray shows no acute cardio vomit process no pneumothorax or rib fracture CT interpreted by me (1pt min.). @ -None done U/S interpreted by me (1pt. min.). @ -None done What testing was considered but not performed or refused? (CT, X-rays, U/S, labs)? Why? @ -None What meds were considered but not given or refused? Why? @ -None Did you discuss the management of the patient with other professionals (professionals i.e. , PA, MACHINE II ENGRAVER, lab, RT, psych nurse, social media designer, side splitter, teacher, safety officer, pillowcase sewer)? Give summary @ -No Was smoking cessation discussed for >3mins.? @ -No Was critical care preformed (if so, how long)? @ -No Were there social determinants of health that impacted care today? How? (Homelessness, low income, unemployed, alcoholism, drug addiction, transportation, low edu. Level, literacy, decrease access to med. care, usp, rehab)? @ -No Was there de-escalation of care discussed even if they declined (Discuss DNR or withdrawal of care, Hospice)? DNR status @ -No What co-morbidities impacted this encounter? (DM, HTN, Smoking, COPD, CAD, Cancer, CVA, ARF, Chemo, Hep., AIDS, mental health diagnosis, sleep apnea, morbid obesity)? @ -None Was patient admitted / discharged? Hospital course, mention meds given and route, prescriptions, significant lab abnormalities, going to OR and other pertinent info. @ -Discharged patient's symptoms have been present for 6 days patient has very reproducible chest wall pain consistent with chest wall syndrome, costochondritis he had negative troponin, negative d-dimer. Patient did feel improved after Toradol. Patient discharged in stable condition. Undiagnosed new problem with uncertain prognosis? @ -No Drug Therapy requiring intensive monitoring for toxicity (Heparin, Nitro, Insulin, Cardizem)? @ -No Were any procedures done? @ -No Diagnosis/symptom? @ -Chest wall pain Acute, or Chronic, or Acute on Chronic? @ -Acute Uncomplicated (without systemic symptoms) or Complicated (systemic symptoms)? @ -Uncomplicated Side effects of treatment? @ -No Exacerbation, Progression, or Severe Exacerbation? @ -No Poses a threat to life or bodily function? How? (Chest pain, [place], [place], pneumonia, PE, COPD, DKA, ARF, appy, cholecystitis, CVA, Diverticulitis, Homicidal, Suicidal, threat to staff... and all critical care pts) @ -No Disposition Clinical Impression: Costochondritis, Chest wall pain Disposition: HOME SELF-CARE Condition: Stable Instructions (If sedation given, give patient instructions): Costochondritis (ED) Additional Instructions: Please return to the Emergency Department if symptoms worsen or any other concerns. Prescriptions: Ketorolac [Toradol] 10 mg PO Q8HR #15 tab Is patient prescribed a controlled substance at d/c from ED?: No Referrals: Nonstaff,Physician [Primary Care Provider] - 1-2 days Time of Disposition: 10:48
[2022-11-22] MEDS ORDERED: ACET/COD 300 MG/30 MG STARTER PACK 6 TAB BTL PO STA (10:47)
[2022-11-22 11:28] VITALS: BP 131/91; PULSE 55; TEMP 98.2
== END 2022-11-22 11:28 | disposition home or self-care (01) ==
LOC: EC 09:17
DX: M94.0 Chondrocostal junction syndrome [Tietze] (principal); R07.89 Other chest pain; I10 Essential (primary) hypertension; F32.A Depression, unspecified; F17.200 Nicotine dependence, unspecified, uncomplicated; F12.90 Cannabis use, unspecified, uncomplicated; Z79.899 Other long term (current) drug therapy; Z91.013 Allergy to seafood; Z88.5 Allergy status to narcotic agent
CPT/HCPCS: 36415; 93005; 85379; 80053; 83735; 84484; 85025; 85610; 85730; 71046; 99285; 96374; 96375; J2360; J1885

== ENCOUNTER 2023-08-23 04:32 | Emergency (ER) | payer OTHER ==
[2023-08-23] MEDS: LIDOCAINE 4% PATCH TOPICAL ONE (04:59)
[2023-08-23] MEDS: SODIUM CHLORIDE 0.9% 1,000 ML IV STA (05:00)
--- NOTE | 2023-08-23 05:00 | ED ---
General Adult HPI - General Chief complaint: Back Pain/Injury Stated complaint: back pain Time Seen by Provider: 08/23/23 04:49 Source: patient, RN notes reviewed, old records reviewed Mode of arrival: ambulatory - History of Present Illness Initial comments: Patient is a 48-year-old male who presents emergency department complaining of lower back spasms. Has a history of this however it has been a few years. No known injury for the patient. States that is likely related to an old mattress. States it has been flaring up on him since Sunday, and is currently morning. However he awoke this morning with more severe pain. Denies any saddle paresthesias or anesthesias, denies any bladder or bowel incontinence or retention, denies any lower extremity paralysis. States pain is primarily in the bilateral paraspinal muscles and is worse with any form of movement of the lower spine. Presents for further evaluation at this time. - Related Data Home Medications Medication Instructions Recorded Confirmed Venlafaxine HCl [Effexor] 75 mg PO HS 08/29/14 10/18/18 Ibuprofen [Motrin Ib] 400 mg PO Q6H PRN 10/18/18 10/18/18 Previous Rx's Medication Instructions Recorded Sulfamethox-Tmp 800-160Mg [Bactrim 1 each PO Q12HR #14 tab 10/18/18 Ds] Acyclovir [Zovirax] 800 mg PO DIRECTED 7 Days #35 03/27/20 tab predniSONE 50 mg PO DAILY #5 tablet 03/27/20 predniSONE 50 mg PO DAILY #5 tablet 05/23/20 valACYclovir HCL [Valtrex] 1,000 mg PO TID #21 tablet 05/23/20 Ketorolac [Toradol] 10 mg PO Q8HR PRN #21 tab 03/19/22 Ketorolac [Toradol] 10 mg PO Q8HR #15 tab 11/22/22 Cyclobenzaprine [Flexeril] 5 mg PO TID PRN 7 Days #21 tablet 08/23/23 Lidocaine 5% Patch [Lidoderm 5% 1 patch TOPICAL DAILY PRN 14 Days 08/23/23 Patch] #14 patch Allergies Allergy/AdvReac Type Severity Reaction Status Date / Time hydromorphone HCl Allergy Rash/Hives Verified 08/23/23 04:44 [From Dilaudid] shellfish derived [Shellfish] Allergy Anaphylaxis Verified 08/23/23 04:44 Review of Systems ROS Statement: Those systems with pertinent positive or pertinent negative responses have been documented in the HPI. Review of Systems: CONST: Denies fever EYES: Denies blurry vision ENT: Denies nasal congestion C/V: Denies Chest pain RESP: Denies shortness of breath GI: Denies abdominal pain : Denies dysuria SKIN: Denies rash. MSK: Endorses lower back pain NEURO: Denies headache ROS Other: All systems not noted in ROS Statement are negative. Past Medical History Past Medical History: Hypertension Additional Past Medical History / Comment(s): arthritis, kidney stone 2004, fatty liver History of Any Multi-Drug Resistant Organisms: None Reported Past Surgical History: Orthopedic Surgery Additional Past Surgical History / Comment(s): lymph node removal, rotator cuff repair, biopsy right thigh, Past Psychological History: Depression Smoking Status: Former smoker Past Alcohol Use History: Abuse, Daily Past Drug Use History: Marijuana General Exam - General Exam Comments Initial Comments: General: Appears in mild to moderate distress secondary to low back pain. HEAD: Normal with no signs of head trauma. EYES: EOMI. ENT: Hearing grossly intact. RESPIRATORY: No respiratory distress. C/V: Regular rate and rhythm. ABD: Abdomen is nondistended. EXT: No obvious deformity. No midline C, T, L-spine tenderness to palpation. No spinal step-offs or deformities. Tenderness to palpation of the paraspinal muscles of the lumbar spine. Seems to be provoked by movement. No flank pain. No abdominal pain. SKIN: No rashes or lesions observed on exposed skin. NEURO: Alert and oriented. Able to ambulate without issue. Course Vital Signs 08/23/23 04:42 Temperature 98.3 F Pulse Rate 72 Respiratory 18 Rate Blood Pressure 133/83 O2 Sat by Pulse 99 Oximetry Medical Decision Making - Medical Decision Making Was pt. sent in by a medical professional or institution (, PA, FRONT END DEVELOPER, urgent care, hospital, or senior care...) When possible be specific @ -No Did you speak to anyone other than the patient for history (EMS, parent, family, police, friend...)? What history was obtained from this source @ -No Did you review nursing and triage notes (agree or disagree)? Why? @ -I reviewed and agree with nursing and triage notes Were old charts reviewed (outside hosp., previous admission, EMS record, old EKG, old radiological studies, urgent care reports/EKG's, senior care records)? Report findings @ -Old charts reviewed Differential Diagnosis (chest pain, altered mental status, abdominal pain women, abdominal pain men, vaginal bleeding, weakness, fever, dyspnea, syncope, headache, dizziness, GI bleed, back pain, seizure, CVA, palpatations, mental health, musculoskeletal)? @ -Muscle strain, muscle sprain, muscle spasm, cauda equina syndrome, nerve impingement. This list is not all inclusive. EKG interpreted by me (3pts min.). @ -None done X-rays interpreted by me (1pt min.). @ -Lumbar spine x-ray reveals no obvious traumatic injury. Patient does have slight curvature suggestive of dextroconvex spinal asymmetry. Seems mild. CT interpreted by me (1pt min.). @ -None done U/S interpreted by me (1pt. min.). @ -None done What testing was considered but not performed or refused? (CT, X-rays, U/S, labs)? Why? @ -None What meds were considered but not given or refused? Why? @ -None Did you discuss the management of the patient with other professionals (professionals i.e. , PA, FRONT END DEVELOPER, lab, RT, psych nurse, health social work professor, chief operating engineer, teacher, project control officer, case finishing machine adjuster)? Give summary @ -No Was smoking cessation discussed for >3mins.? @ -No Was critical care preformed (if so, how long)? @ -No Were there social determinants of health that impacted care today? How? (Homelessness, low income, unemployed, alcoholism, drug addiction, transportation, low edu. Level, literacy, decrease access to med. care, half-way, rehab)? @ -No Was there de-escalation of care discussed even if they declined (Discuss DNR or withdrawal of care, Hospice)? DNR status @ -No What co-morbidities impacted this encounter? (DM, HTN, Smoking, COPD, CAD, Cancer, CVA, ARF, Chemo, Hep., AIDS, mental health diagnosis, sleep apnea, morbid obesity)? @ -None Was patient admitted / discharged? Hospital course, mention meds given and route, prescriptions, significant lab abnormalities, going to OR and other pertinent info. @ -Based on the patient's presentation and physical exam, presents with what appears to be muscle spasms in the lumbar spine. We did agree to obtain lumbar spine x-ray and IV will be established administer 1 L fluid bolus as well as IV analgesia medications, morphine, Toradol as well as a lidocaine patch. Patient was in agreement this plan. No red flag symptoms to suggest cauda equina syndrome at this time. Vital signs are within acceptable limits. No other acute complaints at this time. I do not believe that blood work is required at this time and patient was in agreement this plan. X-ray reveals no obvious traumatic injury. Does show some mild chronic curvature of the spine. On reevaluation, patient's pain is improved. We discussed his results. He expressed understanding. Diagnosis is lumbar strain. He will be discharged home at this time. He was in agreement this plan.Stretching, as well as back and core exercises as mechanisms to attempt to strengthen the muscles to avoid injuries in the future. In the short-term, recommended rest, ice, symptomatic treatment. I will provide the patient with a prescription for Flexeril, lidocaine patches. I instructed the patient to follow up with their PCP in the next 1-3 days.. I explained that the patient should return to the emergency department if they experience any worsening symptoms. Strict return precautions were discussed with the patient. The patient expressed understanding of these instructions. I answered all questions that the patient had. The patient was discharged home in good condition with their prescriptions and follow up information. Undiagnosed new problem with uncertain prognosis? @ -No Drug Therapy requiring intensive monitoring for toxicity (Heparin, Nitro, Insulin, Cardizem)? @ -No Were any procedures done? @ -No Diagnosis/symptom? @ -Lumbar spine muscle strain Acute, or Chronic, or Acute on Chronic? @ -Acute Uncomplicated (without systemic symptoms) or Complicated (systemic symptoms)? @ -Uncomplicated Side effects of treatment? @ -None Exacerbation, Progression, or Severe Exacerbation] @ -No Poses a threat to life or bodily function? @ -No Disposition Clinical Impression: Strain of lumbar paraspinal muscle Disposition: HOME SELF-CARE Condition: Good Instructions (If sedation given, give patient instructions): Acute Low Back Pain (ED) Prescriptions: Cyclobenzaprine [Flexeril] 5 mg PO TID PRN 7 Days #21 tablet PRN Reason: Pain Lidocaine 5% Patch [Lidoderm 5% Patch] 1 patch TOPICAL DAILY PRN 14 Days #14 patch PRN Reason: Pain Is patient prescribed a controlled substance at d/c from ED?: No Referrals: [facility] [Primary Care Provider] - 1-2 days Time of Disposition: 06:27
[2023-08-23] MEDS: KETOROLAC 15 MG/ML 1 ML VIAL IVP STA (05:01)
[2023-08-23] MEDS: MORPHINE SULFATE 4 MG/ML SYRINGE IVP STA (05:02)
[2023-08-23 05:08] VITALS: RESP 18; TEMP 98.3
--- NOTE | 2023-08-23 06:22 | XR ---
EXAM: XR Lumbosacral Spine, 2 or 3 Views CLINICAL HISTORY: ITS.REASON XR Reason: lower back pain TECHNIQUE: Frontal and lateral views of the lumbar spine and sacrum. COMPARISON: No relevant prior studies available. IMPRESSION: 1. No evidence of acutely displaced fracture or dislocation within the lumbar spine. 2. Dextroconvex spinal asymmetry with the apex at L3. 3. If there is further concern for trauma, consider MRI.
[2023-08-23 06:44] VITALS: BP 140/98; PULSE 60
== END 2023-08-23 06:35 | disposition home or self-care (01) ==
LOC: EC 04:32
DX: S39.012A Strain of muscle, fascia and tendon of lower back, initial encounter (principal); I10 Essential (primary) hypertension; F32.A Depression, unspecified; F12.90 Cannabis use, unspecified, uncomplicated; Z87.891 Personal history of nicotine dependence; Z88.5 Allergy status to narcotic agent; Z91.013 Allergy to seafood; X58.XXXA Exposure to other specified factors, initial encounter
CPT/HCPCS: 72100; 99284; 96374; 96375; 96361; J2270; J1885

== ENCOUNTER 2024-07-05 22:42 | Emergency (ER) | payer OTHER ==
[2024-07-05 22:55] VITALS: RESP 18; TEMP 98.7
--- NOTE | 2024-07-05 23:30 | ED ---
Extremity Problem HPI - General Chief complaint: Extremity Problem,Nontraumatic Stated complaint: Chest Pain (Radiate Back) Time Seen by Provider: 07/05/24 23:17 Source: patient, RN notes reviewed Mode of arrival: ambulatory Limitations: no limitations - History of Present Illness Initial comments: 49-year-old male presenting for left shoulder pain x 1 day. States he woke up yesterday with pain in his left collarbone. Describes pain as sharp and radiates into the back and left shoulder. States he can barely move his left arm due to pain. States he had a deep tissue massage this morning which only made the pain worse. History of hypertension. Denies trauma or injury. Denies chest pain, shortness of breath. He is a former smoker. - Related Data Home Medications Medication Instructions Recorded Confirmed Venlafaxine HCl [Effexor] 75 mg PO HS 08/29/14 10/18/18 Ibuprofen [Motrin Ib] 400 mg PO Q6H PRN 10/18/18 10/18/18 Previous Rx's Medication Instructions Recorded Sulfamethox-Tmp 800-160Mg [Bactrim 1 each PO Q12HR #14 tab 10/18/18 Ds] Acyclovir [Zovirax] 800 mg PO DIRECTED 7 Days #35 03/27/20 tab predniSONE 50 mg PO DAILY #5 tablet 03/27/20 predniSONE 50 mg PO DAILY #5 tablet 05/23/20 valACYclovir HCL [Valtrex] 1,000 mg PO TID #21 tablet 05/23/20 Ketorolac [Toradol] 10 mg PO Q8HR PRN #21 tab 03/19/22 Ketorolac [Toradol] 10 mg PO Q8HR #15 tab 11/22/22 Cyclobenzaprine [Flexeril] 5 mg PO TID PRN 7 Days #21 tablet 08/23/23 Lidocaine 5% Patch [Lidoderm 5% 1 patch TOPICAL DAILY PRN 14 Days 08/23/23 Patch] #14 patch Cyclobenzaprine [Flexeril] 10 mg PO TID PRN #15 tab 07/06/24 Allergies Allergy/AdvReac Type Severity Reaction Status Date / Time hydromorphone HCl Allergy Rash/Hives Verified 07/05/24 22:52 [From Dilaudid] shellfish derived [Shellfish] Allergy Anaphylaxis Verified 07/05/24 22:52 Review of Systems ROS Statement: Those systems with pertinent positive or pertinent negative responses have been documented in the HPI. ROS Other: All systems not noted in ROS Statement are negative. Past Medical History Past Medical History: Hypertension Additional Past Medical History / Comment(s): arthritis, kidney stone 2004, fatty liver History of Any Multi-Drug Resistant Organisms: None Reported Past Surgical History: Orthopedic Surgery Additional Past Surgical History / Comment(s): lymph node removal, rotator cuff repair, biopsy right thigh, Past Psychological History: Anxiety, Depression Smoking Status: Former smoker Past Alcohol Use History: None Reported Past Drug Use History: Marijuana General Exam Limitations: no limitations General appearance: alert, in no apparent distress Head exam: Present: atraumatic, normocephalic, normal inspection Eye exam: Present: normal appearance, PERRL, EOMI. Absent: scleral icterus, conjunctival injection, periorbital swelling Neck exam: Present: normal inspection. Absent: tenderness, meningismus, lymphadenopathy Respiratory exam: Present: normal lung sounds bilaterally. Absent: respiratory distress, wheezes, rales, rhonchi, stridor Cardiovascular Exam: Present: regular rate, normal rhythm, normal heart sounds. Absent: systolic murmur, diastolic murmur, rubs, gallop, clicks Left Shoulder Exam: Present: normal inspection, tenderness (Reproducible tenderness to right clavicle). Absent: full ROM (Limited range of motion due to pain), swelling, abrasion, deformity, erythema Upper Arm exam: Present: normal inspection, full ROM. Absent: tenderness, swelling Vascular: Present: normal capillary refill, radial pulse. Absent: vascular compromise Neurological exam: Present: alert, oriented X3 Psychiatric exam: Present: normal affect, normal mood Skin exam: Present: warm, dry, intact, normal color. Absent: rash Course Vital Signs 07/05/24 22:52 Temperature 98.7 F Pulse Rate 83 Respiratory 18 Rate Blood Pressure 150/97 O2 Sat by Pulse 100 Oximetry Medical Decision Making - Medical Decision Making Was pt. sent in by a medical professional or institution (, PA, POISING INSPECTOR, urgent care, hospital, or custodial...) When possible be specific @ -No Did you speak to anyone other than the patient for history (EMS, parent, family, police, friend...)? What history was obtained from this source @ -No Did you review nursing and triage notes (agree or disagree)? Why? @ -I reviewed and agree with nursing and triage notes Were old charts reviewed (outside hosp., previous admission, EMS record, old EKG, old radiological studies, urgent care reports/EKG's, custodial records)? Report findings @ -No old charts were reviewed Differential Diagnosis (chest pain, altered mental status, abdominal pain women, abdominal pain men, vaginal bleeding, weakness, fever, dyspnea, syncope, headache, dizziness, GI bleed, back pain, seizure, CVA, palpatations, mental health, musculoskeletal)? @ -Differential Musculoskeletal Muscular strain, contusion, ligament sprain, fracture, arthritis, septic arthritis, bursitis, cellulitis, muscle spasm, nerve compression, DVT, arterial occlusion, herpes zoster, electrolyte abnormality, tumor.... This is not meant to be in all inclusive list EKG interpreted by me (3pts min.). @ -As above X-rays interpreted by me (1pt min.). @ -CXR and left shoulder xray interpreted by me reveals no acute process CT interpreted by me (1pt min.). @ -None done U/S interpreted by me (1pt. min.). @ -None done What testing was considered but not performed or refused? (CT, X-rays, U/S, labs)? Why? @ -None What meds were considered but not given or refused? Why? @ -None Did you discuss the management of the patient with other professionals (professionals i.e. , PA, POISING INSPECTOR, lab, RT, psych nurse, social insurance specialist, sail maker, teacher, probation officer, social work case manager)? Give summary @ -No Was smoking cessation discussed for >3mins.? @ -No Was critical care preformed (if so, how long)? @ -No Were there social determinants of health that impacted care today? How? (Homelessness, low income, unemployed, alcoholism, drug addiction, transportation, low edu. Level, literacy, decrease access to med. care, fdc, rehab)? @ -No Was there de-escalation of care discussed even if they declined (Discuss DNR or withdrawal of care, Hospice)? DNR status @ -No What co-morbidities impacted this encounter? (DM, HTN, Smoking, COPD, CAD, Cancer, CVA, ARF, Chemo, Hep., AIDS, mental health diagnosis, sleep apnea, morbid obesity)? @ -None Was patient admitted / discharged? Hospital course, mention meds given and route, prescriptions, significant lab abnormalities, going to OR and other pertinent info. @ -Discharge. 49-year-old male with left clavicle pain x 1 day. No injury or trauma. Pain is reproducible on examination. Provided with IM Toradol and Norflex. EKG reveals normal sinus rhythm with no ST changes. Chest x-ray and left shoulder x-ray unremarkable. Discussed results with patient. Symptoms appear to be musculoskeletal at this time. Appropriate return precautions and supportive care discussed. Discharged with prescription for Flexeril. Case was discussed with my ED attending Dr. Aranda Undiagnosed new problem with uncertain prognosis? @ -No Drug Therapy requiring intensive monitoring for toxicity (Heparin, Nitro, Insulin, Cardizem)? @ -No Were any procedures done? @ -No Diagnosis/symptom? @ -Left shoulder strain Acute, or Chronic, or Acute on Chronic? @ -Acute Uncomplicated (without systemic symptoms) or Complicated (systemic symptoms)? @ -Uncomplicated Side effects of treatment? @ -No Exacerbation, Progression, or Severe Exacerbation? @ -No Poses a threat to life or bodily function? How? (Chest pain, [place], [place], pneumonia, PE, COPD, DKA, ARF, appy, cholecystitis, CVA, Diverticulitis, Homicidal, Suicidal, threat to staff... and all critical care pts) @ -No - EKG Data -: EKG Interpreted by Me EKG Comments: EKG reveals normal sinus rhythm with no acute ST changes. Ventricular rate 73 bpm, KS interval 204, QRS duration 92, QT/QTc 4 Disposition Clinical Impression: Left shoulder strain Disposition: HOME SELF-CARE Condition: Stable Instructions (If sedation given, give patient instructions): Muscle Strain (ED) Additional Instructions: Take Flexeril and NSAIDs as needed for pain. Please return to the Emergency Department if symptoms worsen or any other concerns. Prescriptions: Cyclobenzaprine [Flexeril] 10 mg PO TID PRN #15 tab PRN Reason: Muscle Spasm Is patient prescribed a controlled substance at d/c from ED?: No Referrals: [facility] [Primary Care Provider] - 1-2 days Time of Disposition: 00:06
[2024-07-05] MEDS: KETOROLAC 15 MG/ML 1 ML VIAL IM STA (23:39)
[2024-07-05] MEDS: ORPHENADRINE 30 MG/ML 2 ML VIAL IM STA (23:47)
[2024-07-06 00:27] VITALS: BP 154/97; PULSE 69
--- NOTE | 2024-07-06 00:44 | XR ---
EXAM: XR Chest, 2 Views CLINICAL HISTORY: ITS.REASON XR Reason: left shoulder pain TECHNIQUE: Frontal and lateral views of the chest. COMPARISON: 11/22/22 FINDINGS: Lungs: Unremarkable. No consolidation. Pleural space: Unremarkable. Mediastinum: Unremarkable. Normal mediastinal contour. Bones/joints: Fixation pins over right shoulder are again noted. IMPRESSION: No acute findings in the chest.
--- NOTE | 2024-07-06 00:45 | XR ---
EXAM: XR Left Shoulder Complete, 2 or More Views CLINICAL HISTORY: ITS.REASON XR Reason: left shoulder pain TECHNIQUE: 3 views of the left shoulder. COMPARISON: No relevant prior studies available. FINDINGS: Bones/joints: Mild osteoarthritic changes of the glenohumeral joint. Acromioclavicular joint is intact. Soft tissues: Unremarkable. IMPRESSION: Mild osteoarthritic changes of the glenohumeral joint.
== END 2024-07-06 00:28 | disposition home or self-care (01) ==
LOC: EC 22:42
DX: S46.912A Strain of unspecified muscle, fascia and tendon at shoulder and upper arm level, left arm, initial encounter (principal); Z87.891 Personal history of nicotine dependence; Z88.5 Allergy status to narcotic agent; Z91.013 Allergy to seafood; X58.XXXA Exposure to other specified factors, initial encounter
CPT/HCPCS: 93005; 73030; 71046; 99283; 96372; J2360; J1885

== ENCOUNTER 2024-09-05 10:54 | Day surgery (SDC) | payer OTHER ==
[~2024-09-05 10:54] MED LIST: LIDOCAINE 1% (10MG/ML) FOR IV START INTRADERMA PRN; MIDAZOLAM 2 MG/2 ML VIAL IV PRN; Pre Op ABX Message 1 EACH MISC MISCELLANE ONE; fentaNYL (PF) 50 MCG/ML 2 ML AMP IVP PRN
[2024-09-05] MEDS: IV FLUID CONTINUATION 1,000 ML IV ONE (11:26)
[2024-09-05] MEDS: ONDANSETRON 4 MG/2 ML VIAL IVP ONE (11:28)
[2024-09-05] MEDS: DEXAMETHASONE SOD PHOSPHATE 4 MG/ML 1 ML VIAL IV ONE (11:28)
[2024-09-05] MEDS: LACTATED RINGERS 1,000 ML IV SCH (11:29)
[2024-09-05] MEDS ORDERED: NALOXONE 0.4 MG/ML 1 ML VIAL ONE (11:52)
[2024-09-05] MEDS ORDERED: KETOROLAC 15 MG/ML 1 ML VIAL ONE (11:52)
[2024-09-05] MEDS ORDERED: PHENYLEPHRINE 10 MG/ML VIAL ONE (11:52)
[2024-09-05] MEDS ORDERED: PROPOFOL 10 MG/ML 20 ML VIAL IV ONE (11:52)
[2024-09-05] MEDS ORDERED: MIDAZOLAM 2 MG/2 ML VIAL ONE (11:52)
[2024-09-05] MEDS ORDERED: LIDOCAINE 1% INJ 10MG/ML (20 ML MDV) ONE (11:52)
[2024-09-05] MEDS ORDERED: fentaNYL (PF) 50 MCG/ML 2 ML AMP ONE (11:52)
[2024-09-05] MEDS: ceFAZolin 1,000 MG VIAL IVPB ONE (12:09)
[2024-09-05] MEDS: BUPIVACAINE (PF) 0.25% 30 ML VIAL SQ ONE (12:09)
[2024-09-05] MEDS: LACTATED RINGERS 1,000 ML IV ONE (12:47)
[2024-09-05 13:06] VITALS: TEMP 97.2
[2024-09-05] MEDS: MORPHINE SULFATE 4 MG/ML SYRINGE IV PRN (13:36)
[2024-09-05 13:42] VITALS: RESP 16
[2024-09-05 14:17] VITALS: BP 130/75; PULSE 60
--- NOTE | 2024-09-07 13:08 | P.OP ---
Date of Procedure: 09/05/24 Preoperative Diagnosis: Head mass x 2 Postoperative Diagnosis: Head mass x 2 Procedure(s) Performed: Excision of head mass x 2 Anesthesia: local Surgeon: Camilo Thomas Estimated Blood Loss (ml): 10 Pathology: other (Head mass x 2) Condition: stable Disposition: PACU Indications for Procedure: Head mass times several months Operative Findings: Larger mass likely a lipoma smaller mass sebaceous cyst Description of Procedure: The patient was brought to the operating room where he was cleaned draped in a sterile fashion and a timeout was performed. Everyone agreed with information and sided. Next #15 blade was used to make a linear incision along the lines of Langerhans and electrocautery were used to dissect down to the ostium and a 2 x 3 x 3 cm lipoma was observed this was dissected freely and resected and passed off as a specimen hemostatic timeout was performed and a combination of electrocautery and hemostatic powder was used. Turned attention to the smaller mass which was removed using a #15 blade and electrocautery and this was dissected down to ostium as well. This appeared to be a epidermal inclusion cyst. A hemostatic timeout was performed and no active bleeding was observed. The larger incision was closed using combination of 3-0 and 4-0 Vicryl suture and the smaller just a 4-0 Vicryl suture in interrupted fashion the patient tolerated procedure well was then transported to PACU in stable condition
== END 2024-09-05 14:35 | disposition home or self-care (01) ==
LOC: OR 10:54
PROVIDERS: ATTEND Surgery
DX: D17.0 Benign lipomatous neoplasm of skin and subcutaneous tissue of head, face and neck (principal); L72.0 Epidermal cyst; F12.90 Cannabis use, unspecified, uncomplicated; Z79.899 Other long term (current) drug therapy
CPT/HCPCS: 88304; 21011; J2250; J2270; J1100; J2310; J2405; J0690; J2003; J3010; J1885; J2704; J2371; J0665

== ENCOUNTER 2024-09-14 13:43 | Emergency (ER) | payer OTHER ==
[2024-09-14 14:00] VITALS: TEMP 98.4
[2024-09-14] MEDS: LIDOCAINE 1% INJ 10MG/ML (20 ML MDV) SQ ONE (14:14)
--- NOTE | 2024-09-14 14:16 | ED ---
Skin/Abscess/FB HPI - General Chief complaint: Skin/Abscess/Foreign Body Stated complaint: post op issue Time Seen by Provider: 09/14/24 13:57 Source: patient, RN notes reviewed Mode of arrival: ambulatory Limitations: no limitations - History of Present Illness Initial comments: 49-year-old male with no reported medical conditions presenting to emergency department for complaint of bump to the right side of his scalp. Patient states that he had general surgery on 09/05/[address] Thomas where a lipoma was removed from his scalp in addition to a abscess was drained. Patient states that his follow-up is scheduled on 09/23/24. Patient touch base with his general surgeon on Sunday who recommended that he reports Emergency Department for further evaluation for drainage of the area. Patient endorses pressure around the bump. He denies fevers, chills, nausea, vomiting. Denies current antibiotic use. No other acute complaints this time. - Related Data Home Medications Medication Instructions Recorded Confirmed No Known Home Medications 09/04/24 09/05/24 Allergies Allergy/AdvReac Type Severity Reaction Status Date / Time hydromorphone HCl Allergy Rash/Hives Verified 09/14/24 13:53 [From Dilaudid] shellfish derived [Shellfish] Allergy Anaphylaxis Verified 09/14/24 13:53 Review of Systems ROS Statement: Those systems with pertinent positive or pertinent negative responses have been documented in the HPI. ROS Other: All systems not noted in ROS Statement are negative. Past Medical History Past Medical History: Liver Disease Additional Past Medical History / Comment(s): arthritis, kidney stone 2004, fatty liver History of Any Multi-Drug Resistant Organisms: None Reported Past Surgical History: Orthopedic Surgery Additional Past Surgical History / Comment(s): lymph node removal, rotator cuff repair, biopsy right thigh Past Anesthesia/Blood Transfusion Reactions: No Reported Reaction Past Psychological History: Anxiety, Depression Smoking Status: Former smoker - Past Family History Father Family Medical History: Cancer Additional Family Medical History / Comment(s): prostate General Exam Limitations: no limitations General appearance: alert, in no apparent distress Head exam: Present: other (right sided scalp post-op incision, well healed with area of fluctuance surrounding 2 cm diameter) Neck exam: Present: normal inspection. Absent: tenderness, meningismus, lymphadenopathy Respiratory exam: Present: normal lung sounds bilaterally. Absent: respiratory distress, wheezes, rales, rhonchi, stridor Cardiovascular Exam: Present: regular rate, normal rhythm, normal heart sounds. Absent: systolic murmur, diastolic murmur, rubs, gallop, clicks GI/Abdominal exam: Present: soft, normal bowel sounds. Absent: distended, tenderness, guarding, rebound, rigid Extremities exam: Present: normal inspection, full ROM, normal capillary refill. Absent: tenderness, pedal edema, joint swelling, calf tenderness Back exam: Present: normal inspection Course Vital Signs 09/14/24 09/14/24 13:50 14:47 Temperature 98.4 F 98.4 F Pulse Rate 68 70 Respiratory 17 20 Rate Blood Pressure 123/81 138/78 O2 Sat by Pulse 100 100 Oximetry Medical Decision Making - Medical Decision Making Was pt. sent in by a medical professional or institution (, PA, GRID INSPECTOR, urgent care, hospital, or fci...) When possible be specific @ -No Did you speak to anyone other than the patient for history (EMS, parent, family, police, friend...)? What history was obtained from this source @ -No Did you review nursing and triage notes (agree or disagree)? Why? @ -I reviewed and agree with nursing and triage notes Were old charts reviewed (outside hosp., previous admission, EMS record, old EKG, old radiological studies, urgent care reports/EKG's, fci records)? Report findings @ Reviewed general surgeon's procedure report from 09/05/2024 for patient underwent excision of head mass reviewing a removal of a 2 x 3 x 3 cm lipoma dissected and resected Differential Diagnosis (chest pain, altered mental status, abdominal pain women, abdominal pain men, vaginal bleeding, weakness, fever, dyspnea, syncope, h eadache, dizziness, GI bleed, back pain, seizure, CVA, palpatations, mental health, musculoskeletal)? @ -abscess, lipoma, seroma, this list is not all inclusive EKG interpreted by me (3pts min.). @ -none X-rays interpreted by me (1pt min.). @ -None done CT interpreted by me (1pt min.). @ -None done U/S interpreted by me (1pt. min.). @ -None done What testing was considered but not performed or refused? (CT, X-rays, U/S, labs)? Why? @ -None What meds were considered but not given or refused? Why? @ -None Did you discuss the management of the patient with other professionals (professionals i.e. , PA, GRID INSPECTOR, lab, RT, psych nurse, social service liaison, scaffold setter, teacher, traffic police officer, case manager specialist)? Give summary @ -No Was smoking cessation discussed for >3mins.? @ -No Was critical care preformed (if so, how long)? @ -No Were there social determinants of health that impacted care today? How? (Homelessness, low income, unemployed, alcoholism, drug addiction, transportation, low edu. Level, literacy, decrease access to med. care, residential, rehab)? @ -No Was there de-escalation of care discussed even if they declined (Discuss DNR or withdrawal of care, Hospice)? DNR status @ -No What co-morbidities impacted this encounter? (DM, HTN, Smoking, COPD, CAD, Cancer, CVA, ARF, Chemo, Hep., AIDS, mental health diagnosis, sleep apnea, morbid obesity)? @ -None Was patient admitted / discharged? Hospital course, mention meds given and route, prescriptions, significant lab abnormalities, going to OR and other pertinent info. @ -Discharge. 49-year male presenting with postoperative minor complication. Wound is well-healed with no signs of dehiscence. There is an area of fluctuance surrounding postoperative lipoma removal. Attempted to complete needle aspiration, cleansed area with ChloraPrep, anesthetized area with 5% subcu lidocaine. 25-gauge needle was used to attempt aspiration however was unsuccessful. Recommend patient follow-up as scheduled with general surgeon in upcoming week for further evaluation. Return parameters discussed. Case discussed with Dr. Garcia Undiagnosed new problem with uncertain prognosis? @ -No Drug Therapy requiring intensive monitoring for toxicity (Heparin, Nitro, Insulin, Cardizem)? @ -No Were any procedures done? @ -No Diagnosis/symptom? @ -post-operative seroma Acute, or Chronic, or Acute on Chronic? @ -acute Uncomplicated (without systemic symptoms) or Complicated (systemic symptoms)? @ -uncomplicated Side effects of treatment? @ -No Exacerbation, Progression, or Severe Exacerbation? @ -No Poses a threat to life or bodily function? How? (Chest pain, [place], [place], pneumonia, PE, COPD, DKA, ARF, appy, cholecystitis, CVA, Diverticulitis, Homicidal, Suicidal, threat to staff... and all critical care pts) @ -No Disposition Clinical Impression: Postoperative seroma Disposition: HOME SELF-CARE Condition: Good Instructions (If sedation given, give patient instructions): Seroma (DC) Additional Instructions: Please return to the Emergency Department if symptoms worsen or any other concerns. Is patient prescribed a controlled substance at d/c from ED?: No Referrals: Boubacar Conley DO [Primary Care Provider] - 1-2 days Time of Disposition: 14:36
[2024-09-14 14:48] VITALS: BP 138/78; PULSE 70; RESP 20
== END 2024-09-14 14:47 | disposition home or self-care (01) ==
LOC: EC 13:43
DX: L76.34 Postprocedural seroma of skin and subcutaneous tissue following other procedure (principal); Z87.891 Personal history of nicotine dependence; Z88.5 Allergy status to narcotic agent; Z91.013 Allergy to seafood
CPT/HCPCS: 99283; J2003